=== PATIENT | female | born 1945 | race Caucasian/White ===

== ENCOUNTER 2022-02-04 16:35 | Emergency (ER) | payer MEDICARE, BC, SELFPAY ==
--- NOTE | ~2022-02-04 | CT_ITS ---
EXAMINATION: CT BRAIN W/O DATE: 02/04/2022 18:25 INDICATION: Fall. Head injury. Small laceration to the scalp. TECHNIQUE: Computed tomography (CT) of the head was performed without intravenous contrast. The dose- length product was 605.33 mGy-cm. COMPARISON: No prior studies for comparison. FINDINGS: Normal brain parenchymal volume for age. Normal dewey-white differentiation. No acute intrac ranial hemorrhage, infarction, mass or mass effect. No ventriculomegaly or midline shift. Midline sagittal images demonstrate a normal corpus callosum, c raniovertebral junction and sella turcica. Basilar cisterns are patent. Paranasal sinuses and mastoids are pneumatized. No depressed skull fractures. There is subcutaneous g as in the scalp, consistent with laceration near the parietal vertex. IMPRESSION: 1. No acute intracranial abnormality. Reviewed, dictated and finalized at location A.
--- NOTE | ~2022-02-04 | CT_ITS ---
EXAMINATION: CT cervical spine wo con DATE: 02/04/2022 18:25 INDICATION: Neck pain after fall TECHNIQUE: Computed tomography (CT) of the cervical spine was performed without intravenous contrast. The dose-length product was 171 mGy-cm. Automated exposure control and iterative reconstruction tech [place] were employed. COMPARISON: None FINDINGS: There is degenerative disc disease at C3-4, C4-5 and C5-6. There is degenerative retrolisth esis at C3-4. There is mild multilevel facet arthropathy. Odontoid process is normal. Lateral masses normally aligned. No significant paraspinal soft tissue abnormality. Craniovertebral junction within normal limits. IMPRESSION: 1. No acute abnormality of the cervical spine. 2: Mild-moderate cervical spondylosis. Reviewed, dictated and finalized at location A.
[2022-02-04 16:38] VITALS: BP 140/61; PULSE 81; RESP 18; TEMP 36.2; O2SAT 99
--- NOTE | 2022-02-04 17:34 | ED.FALL ---
HPI - Fall General Chief Complaint: Fall Stated Complaint: fall, head injury Time Seen by Provider: 02/04/22 17:34 Source: patient Mode of arrival: ambulatory Limitations: no limitations History of Present Illness HPI Narrative: Patient is a 76 y/o female who presents to the ED with c/o head injury that occurred around 4 PM. Patient reports she was walking out of her apartment today to take out the trash when she slipped on her front steps, falling backwards hitting her posterior head against the concrete steps. She sustained abrasions to her posterior scalp. Denied any LOC. Denied any prodromal symptoms. No significant headache, vision changes. No other injuries or areas of pain. She has been ambulatory since the fall. No blood thinners. Review of Systems Review of Systems: CONSTITUTIONAL: Denies fever, chills, or sweats. EYES: Denies visual changes. CARDIOVASCULAR: Denies chest pain. RESPIRATORY: Denies dyspnea. GASTROINTESTINAL: Denies abdominal pain, nausea, vomiting. SKIN: Reports abrasions to posterior scalp. MUSCULOSKELETAL: Denies back pain, joint pain, or myalgia. NEUROLOGIC: Reports HI. Denies headache, LOC, numbness, or weakness. All systems reviewed & are unremarkable except as noted in HPI and below PMFSH Past Medical History Medical History (Updated 02/04/22 @ 19:10 by Teagan Almonte PA-C) Anxiety Depression GERD (gastroesophageal reflux disease) HLD (hyperlipidemia) Surgical History Surgical History (Updated 02/04/22 @ 17:56 by Teagan Almonte PA-C) History of thumb surgery Social History Social History (Updated 02/04/22 @ 17:56 by Teagan Almonte PA-C) Smoking status: Never smoker Exam Narrative: GENERAL: Well appearing, well-nourished, non-toxic, in no acute distress. HEAD: Normocephalic. Small area of tender abraded skin to posterior scalp, two pinpoint areas of bleeding with manipulation of scalp. No deeper wounds or lacerations. No pulsatile bleeding. EYES: PERRL/EOMI, conjunctivae clear bilaterally. NECK: Supple. No adenopathy, no masses. No cervical midline spinal tenderness. RESPIRATORY: Airway patent, respirations nonlabored. Clear to auscultation bilaterally, no rales, rhonchi, wheezing. CARDIOVASCULAR: Regular rate and rhythm without murmurs, rubs, or gallops. Peripheral pulses 2+ and equal bilaterally. MUSCULOSKELETAL: Moves all extremities. Strength/ROM intact without gross deformities. Full ROM of R elbow. No midline thoracic or lumbar spinal tenderness. SKIN: Warm, dry, normal color. No rashes. Small abrasion to right elbow, nontender. NEURO: A&O X3. Speech clear. Cranial nerves II-XII grossly intact. Steady gait. No ataxic movements. PSYCHIATRIC: Appropriate mood and affect. Normal interaction. Course Vital Signs Vital signs: Vital Signs Temperature 97.1 F L 02/04/22 16:38 Pulse Rate 81 02/04/22 16:38 Respiratory Rate 18 02/04/22 16:38 Blood Pressure 140/61 02/04/22 16:38 Pulse Oximetry 99 02/04/22 16:38 Temperature 97.1 F L 02/04/22 16:38 Pulse Rate 81 02/04/22 16:38 Respiratory Rate 18 02/04/22 16:38 Blood Pressure 140/61 02/04/22 16:38 Pulse Oximetry 99 02/04/22 16:38 Procedures Laceration Laceration 1: Date: 02/04/22 Time: 19:00 Site: scalp Size (cm): 0.01 Description: clean Depth: simple, single layer Local Anesthetic: none Pre-repair: wound explored and irrigated ====== Skin Level ====== Skin layer closed with: tayla (#2) ====== Subcutaneous Layer ====== ====== Muscle Layer ====== ====== Tendon Layer ====== MDM - Fall MDM Narrative Medical decision making narrative: Patient presented to the ED status post ground-level mechanical fall, head injury, no LOC. Vital signs stable upon arrival. Small abrasions to posterior scalp. Irrigated and cleaned thoroughly. Initially did not feel patient required repair, but continued to have some bleed
== END 2022-02-04 19:43 | disposition home or self-care (01) ==
PROVIDERS: Emergency Provider Emergency Medicine
DX: S01.01XA Laceration without foreign body of scalp, initial encounter (principal); W10.9XXA Fall (on) (from) unspecified stairs and steps, initial encounter; F41.9 Anxiety disorder, unspecified; F32.9 Major depressive disorder, single episode, unspecified; K21.9 Gastro-esophageal reflux disease without esophagitis; E78.5 Hyperlipidemia, unspecified
CPT/HCPCS: 12001; 70450; 72125; 99284

== ENCOUNTER → 2022-03-12 09:20 | Outpatient (CLI) | payer MEDICARE, SELFPAY ==
--- NOTE | ~2022-03-12 | XR_ITS ---
EXAMINATION: XR chest 2V DATE: 03/12/2022 09:44 INDICATION: Productive cough TECHNIQUE: PA and lateral views of the chest are obtained. COMPARISON: None available FINDINGS: There are nodular opacities of the lungs in the midlung zones and right lung base. No pleur al effusion or pneumothorax. There is a moderate-sized hiatal hernia. The heart size is normal. There is severe thoracic spondylosis. Changes of right total shoulder arthroplasty are noted. IMPRESSION: 1. Bilateral nodular opacities of the lungs which could reflect pneumonia however further evaluation with CT of the chest is recommended. Reviewed, dictated and finalized at location B. IMPRESSION: 1. Bilateral nodular opacities of the lungs which could reflect pneumonia howev er further evaluation with CT of the chest is recommended.
== END ==
PROVIDERS: PCP Emergency Medicine; Visit Provider Emergency Medicine
DX: M47.814 Spondylosis without myelopathy or radiculopathy, thoracic region (principal); R05.9 Cough, unspecified; J40 Bronchitis, not specified as acute or chronic; K44.9 Diaphragmatic hernia without obstruction or gangrene
CPT/HCPCS: 71046

== ENCOUNTER → 2022-03-13 05:46 | Outpatient (CLI) | payer MEDICARE, BC, SELFPAY ==
[2022-03-13 11:12] LABS: SARS-CoV-2 RNA PCR Negative
== END ==
PROVIDERS: PCP Emergency Medicine; Visit Provider Emergency Medicine
DX: R09.89 Other specified symptoms and signs involving the circulatory and respiratory systems (principal); Z20.822 Contact with and (suspected) exposure to COVID-19
CPT/HCPCS: C9803; U0003; U0005

== ENCOUNTER 2022-03-13 10:42 | Emergency (ER) | payer MEDICARE, BC, SELFPAY ==
--- NOTE | ~2022-03-13 | CT_ITS ---
EXAMINATION:CT diagnostic chest wo con DATE: 03/13/2022 12:11 INDICATION: Cough. Abnormal chest radiographs. TECHNIQUE: Computed tomography (CT) of the chest was performed without intravenous contrast. Automate d exposure control and iterative reconstruction technique were employed. The dose-length product (DLP ) was 129.75 mGy-cm. COMPARISON: Chest 2 views 03/12/2022 FINDINGS: There is mild scarring at the lung apices. There are airspace and groundglass opacities wit h air bronchograms in posterior segment right upper lobe. There are patchy airspace opacities with ai r bronchograms in right lower lobe. There are airspace opacities with volume loss and mild bronchiect asis in lingula. There are airspace opacities and centrilobular nodules in anterior segment left uppe r lobe. No pleural effusion. The heart size is normal. There are coronary artery calcifications. No p ericardial effusion. There is a moderate-sized sliding hiatal hernia. There is a total right shoulder arthroplasty. There is an old healed left rib fracture. There is thoracic kyphosis and severe spondy losis. IMPRESSION: 1. Multifocal pneumonia. 2. Moderate-sized sliding hiatal hernia. Reviewed, dictated and finalized at location A.
[2022-03-13 10:46] VITALS: BP 144/61; PULSE 90; RESP 20; TEMP 36.7; O2SAT 98
[2022-03-13 11:23] LABS: Basophils Absolute Auto 0.1 K/mm3 (0.0-0.1); Basophils Percent Auto 0.6 % (0.2-1.2); Eosinophils Absolute Auto 0.2 K/mm3 (0-0.3); Eosinophils Percent Auto 2.7 % (0-4.4); Hematocrit 37.9 % (37.0-47.0); Hemoglobin 12.7 g/dL (12.0-15.0); Immature Granulocyte Absolute 0.07 K/mm3 (0.00-0.031); Immature Granulocyte Percent A 0.8 % (0-0.5); Lymphocytes Absolute Auto 1.31 K/mm3 (0.9-3.2); Lymphocytes Percent Auto 14.7 % (18.3-44.2); Mean Corpuscular HGB Conc 33.5 g/dl (32-36); Mean Corpuscular Hemoglobin 31.3 pg (26-34); Mean Corpuscular Volume 93.3 fl (80-100); Mean Platelet Volume 8.7 fl (7.4-10.4); Monocytes Absolute Auto 0.7 K/mm3 (0.1-0.6); Monocytes Percent Auto 8.1 % (2.6-8.5); Neutrophils Absolute Auto 6.5 K/mm3 (1.3-6.7); Neutrophils Percent Auto 73.1 % (45.5-73.1); Platelet Count Result 318 k/mm3 (150-375); Red Blood Count 4.06 M/mm3 (4.2-5.4); Red Cell Distribution Width 12.7 % (11.5-14.5); White Blood Count 8.9 K/mm3 (4.5-10.0)
--- NOTE | 2022-03-13 11:26 | ED.RECABL ---
HPI - Recheck/Abnormal Lab/Rx General Chief Complaint: Recheck/Abnormal Lab/Rx Stated Complaint: abnormal cxr Time Seen by Provider: 03/13/22 11:05 Source: patient, RN notes reviewed and old records reviewed Mode of arrival: ambulatory Limitations: no limitations History of Present Illness HPI narrative: This is a 76 year old female who presents for evaluation of an abnormal chest xray . Patient has been dealing with a cough for 3 weeks. She reports cough has been productive with yellow to green sputum so her PCP ordered xray yesterday and covid test today. She denies sob, fever, nausea, vomiting or chest pain. She also denies leg swelling. She started on Cefdinir yesterday for treatment of bronchitis per patient. Her PCP called her today and told her to come to ER. She had chest xray yesterday in which radiologist recommended CT . Related Data Allergies Allergy/AdvReac Type Severity Reaction Status Date / Time codeine AdvReac Nausea Verified 03/13/22 11:28 Review of Systems Review of Systems: All systems reviewed & are unremarkable except as noted in HPI and below Constitutional: Constitutional: Denies chills, Denies fatigue and Denies fever(s) Cardiovascular: Cardiovascular: Denies chest pain Respiratory: Respiratory: Reports chest congestion, Reports cough, Denies dyspnea and Denies wheezing Gastrointestinal: Gastrointestinal: Denies abdominal pain, Denies nausea and Denies vomiting PMFSH Past Medical History Medical History Anxiety Depression GERD (gastroesophageal reflux disease) HLD (hyperlipidemia) Surgical History Surgical History History of thumb surgery Social History Social History Smoking status: Never smoker Exam Const: General: no acute distress and alert Nutritional Appearance: well nourished Orientation/consciousness: patient oriented x3 HENMT: Throat: posterior oropharynx normal Eyes: EOM: EOMs intact bilaterally Chest: Chest palpation & inspection: normal inspection of the chest Resp: Effort & Inspection: normal respiratory effort Auscultation: wheezes expiratory wheezes and left lower Cardio: Rate: regular rate Rhythm: regular rhythm Heart sounds: no murmurs GI: GI Palp: Yes Soft to palpation, No Tenderness to palpation present (GI) and No Guarding due to palpation present (GI) Auscultation: normal bowel sounds Skin: General skin exam: normal color Rashes: no rashes Wounds: no wounds Neuro: General: patient oriented x3, moves all extremities and CN's II-XI intact bilaterally Extrem: General: normal to inspection and no pedal edema Psych: Mental Status: mental status grossly normal Course Reevaluation(s) Reevaluation #1: PAtient looks well and she is no distress. LAbs are unremarkable. CT does show pneumonia but she just started antibiotics yesterday. She will continue her antibiotics and be discharged. I informed Dr. Cheng of the plan and he will follow up with patient. Patient states she feels great. Date: 03/13/22 Time: 13:17 Vital Signs Vital signs: Vital Signs Temperature 98.0 F 03/13/22 10:46 Pulse Rate 90 03/13/22 10:46 Respiratory Rate 20 03/13/22 10:46 Blood Pressure 144/61 H 03/13/22 10:46 Pulse Oximetry 98 03/13/22 10:46 Oxygen Delivery Room Air 03/13/22 10:46 Temperature 98.0 F 03/13/22 10:46 Pulse Rate 78 03/13/22 13:38 Respiratory Rate 18 03/13/22 13:38 Blood Pressure 120/66 03/13/22 13:38 Pulse Oximetry 99 03/13/22 13:38 Oxygen Delivery Room Air 03/13/22 10:46 MDM - Recheck/Abnormal Lab/Rx Medical Records Attestation: I reviewed the patient's medical records. Lab Data Attestation: I reviewed the patient's lab results. Result diagrams: 03/13/22 11:11 03/13/22 11:11 Labs: Lab Results
[2022-03-13 11:32] LABS: Alanine Aminotransferase 15 U/L (6-35); Albumin Level 3.9 g/dL (3.5-5.1); Alkaline Phosphatase 150 U/L (38-126); Anion Gap 11 mmol/L (8-16); Aspartate Amino Transferase 19 U/L (14-36); Bilirubin,Total 0.2 mg/dL (0.2-1.3); Blood Urea Nitrogen 21 mg/dL (7-17); Calcium 9.2 mg/dL (8.4-10.2); Carbon Dioxide 32 mmol/L (22-30); Chloride 99 mmol/L (98-107); Estimated CRCL calculation 60 ml/min; Estimated Glomerular Filt Rate 54; Glucose 123 mg/dL (65-110); Potassium 3.7 mmol/L (3.4-5.0); Sodium 142 mmol/L (137-145)
[2022-03-13] MEDS: ALBUTEROL SULFATE (*SP) AEROSOL 1 PUFF 4 PUFF INHALATION (11:43)
[2022-03-13 13:15] VITALS: BP 124/71; PULSE 57; RESP 20; O2SAT 99
[2022-03-13 13:38] VITALS: BP 120/66; PULSE 78; RESP 18; O2SAT 99
== END 2022-03-13 13:40 | disposition home or self-care (01) ==
PROVIDERS: Emergency Provider General Practice; PCP Emergency Medicine
DX: J18.9 Pneumonia, unspecified organism (principal); E78.5 Hyperlipidemia, unspecified; K21.9 Gastro-esophageal reflux disease without esophagitis; F41.9 Anxiety disorder, unspecified; F32.A Depression, unspecified
CPT/HCPCS: 36415; 71250; 80053; 85025; 99284; A9270; C9803; U0003; U0005

== ENCOUNTER → 2022-03-22 10:06 | Outpatient (CLI) | payer MEDICARE, BC, SELFPAY ==
--- NOTE | ~2022-03-22 | XR_ITS ---
XR chest 2V 03/22/2022 10:34 Indication: Multifocal pneumonia. Procedure: 2 view chest Comparison: 03/12/2022 Findings: Improving patchy bilateral airspace disease of the mid lungs, consistent with resolving pne umonia. Moderate size hiatal hernia. No pleural effusion or pneumothorax. No acute osseous abnormalit y. There is a right shoulder arthroplasty. Heart size normal. There is nodular density in the left mi d thorax corresponding to callus formation from rib fracture. Impression: 1: Improving patchy bilateral pneumonia. Reviewed, dictated and finalized at location B. Impression: 1: Improving patchy bilateral pneumonia.
--- NOTE | ~2022-03-22 | XR_ITS ---
EXAMINATION: XR thoracic spine 3V DATE: 03/22/2022 10:33 INDICATION: Thoracic back pain TECHNIQUE: AP, lateral and lateral swimmer's views of the thoracic spine were obtained. COMPARISON: 03/13/2022 FINDINGS: Bone alignment is normal. There is no fracture. There is severe loss of intervertebral disc space height at multiple levels in the thoracic spine. Exaggerated thoracic kyphosis is noted. The v ertebral body heights are normal. Small degenerative osteophytes project from the anterior endplates of multiple vertebral bodies. Moderate cervical spondylosis is also noted. IMPRESSION: 1. Severe thoracic spondylosis without acute findings. Reviewed, dictated and finalized at location A.
--- NOTE | ~2022-03-22 | XR_ITS ---
EXAMINATION: XR lumbar spine 2-3V DATE: 03/22/2022 10:34 INDICATION: Low back pain TECHNIQUE: Anteroposterior and lateral views of the lumbar spine, and cone-down lateral view of the l umbosacral junction were obtained. COMPARISON: None. FINDINGS: There are 2 mm of anterolisthesis of L3 on L4. There is severe loss of intervertebral disc space height at L4-5 and L5-S1. The vertebral body heights are normal. There is severe facet osteoart hritis of the lower lumbar spine. There is no fracture. Changes of right hip arthroplasty are noted. IMPRESSION: 1. Severe lower lumbar spondylosis without acute findings. Reviewed, dictated and finalized at location A.
== END ==
PROVIDERS: PCP Emergency Medicine; Visit Provider Emergency Medicine
DX: J18.9 Pneumonia, unspecified organism (principal); M47.813 Spondylosis without myelopathy or radiculopathy, cervicothoracic region; M47.815 Spondylosis without myelopathy or radiculopathy, thoracolumbar region; K44.9 Diaphragmatic hernia without obstruction or gangrene
CPT/HCPCS: 71046; 72072; 72100

== ENCOUNTER 2022-04-30 13:55 | Outpatient (CLI) | payer MEDICARE, BC, SELFPAY ==
--- NOTE | ~2022-04-30 | MM_ITS ---
EXAMINATION: MM screening jm BI w hellen HISTORY: Screening TECHNIQUE: Craniocaudal and mediolateral oblique 3-D tomosynthesis images were obtained and synthetic 2-D images were generated. CAD analysis was submitted and interpreted. COMPARISON: No prior mammogram is available for comparison at this institution. BREAST PARENCHYMAL COMPOSITION: There are scattered areas of fibroglandular density. FINDINGS: There is no evidence of suspicious mass, calcification, or architectural distortion to sugg est malignancy in either breast. There has been no suspicious interval change. IMPRESSION: 1. No mammographic evidence of malignancy. 2. Recommend routine screening mammography in one year. BI-RADS Category 1: Negative Reviewed, dictated and finalized at location A.
== END 2022-04-30 13:56 | disposition home or self-care (01) ==
LOC: ANHIMG 13:58
PROVIDERS: PCP Emergency Medicine; Visit Provider Emergency Medicine
DX: Z12.31 Encounter for screening mammogram for malignant neoplasm of breast (principal)
CPT/HCPCS: 77063; 77067

== ENCOUNTER 2022-07-15 17:24 | Emergency (ER) | payer MEDICARE, BC, SELFPAY ==
--- NOTE | ~2022-07-15 | XR_ITS ---
EXAMINATION: XR chest 2V DATE: 07/15/2022 18:25 INDICATION: Shortness of breath. TECHNIQUE: Frontal and lateral views of the chest were obtained. COMPARISON: Chest 2 views 03/22/2022, chest CT 03/13/2022 FINDINGS: There is no pneumonia, pleural effusion, or pneumothorax. The heart size is normal. There i s a moderate-sized hiatal hernia. There are prominent paracardial fat pads. There is a total right sh oulder arthroplasty. There is old healed left rib fracture. IMPRESSION: 1. Moderate-sized hiatal hernia. Reviewed, dictated and finalized at location A. MAKER
--- NOTE | 2022-07-15 17:30 | ECG_ITS ---
Measurements Intervals [place] Rate: 88 P: 70 KS: 137 QRS: 44 QRSD: 88 T: 51 QT: 358 QTc: 434 Interpretive Statements SINUS RHYTHM MINIMAL Q WAVES- ANTEROLAT/INF LEADS BASELINE ARTIFACT- I, II, III, AVR, AVL, AVF, V1-V6 BORDERLINE ECG NO PREVIOUS ECG AVAILABLE FOR COMPARISON Electronically Signed On 07-15-2022 20:20:58 WIPING CLOTH CUTTER by Ronak Ferreira D.O.
[2022-07-15 17:57] VITALS: BP 115/87; PULSE 86; RESP 14; TEMP 36.5; O2SAT 96
[2022-07-15 18:16] LABS: Basophils Percent Auto 0.3 % (0.2-1.2); Eosinophils Absolute Auto 0.2 K/mm3 (0-0.3); Eosinophils Percent Auto 2.7 % (0-4.4); Hemoglobin 13.3 g/dL (12.0-15.0); Immature Granulocyte Absolute 0.01 K/mm3 (0.00-0.031); Immature Granulocyte Percent A 0.2 % (0-0.5); Lymphocytes Absolute Auto 1.31 K/mm3 (0.9-3.2); Lymphocytes Percent Auto 20.8 % (18.3-44.2); Mean Corpuscular HGB Conc 34.1 g/dl (32-36); Mean Corpuscular Hemoglobin 31.6 pg (26-34); Mean Corpuscular Volume 92.6 fl (80-100); Mean Platelet Volume 9.2 fl (7.4-10.4); Monocytes Absolute Auto 0.6 K/mm3 (0.1-0.6); Monocytes Percent Auto 8.7 % (2.6-8.5); Neutrophils Absolute Auto 4.3 K/mm3 (1.3-6.7); Neutrophils Percent Auto 67.3 % (45.5-73.1); Platelet Count Result 247 k/mm3 (150-375); Red Blood Count 4.21 M/mm3 (4.2-5.4); Red Cell Distribution Width 13.3 % (11.5-14.5); White Blood Count 6.3 K/mm3 (4.5-10.0)
[2022-07-15 18:28] LABS: Alanine Aminotransferase 23 U/L (6-35); Albumin Level 4.1 g/dL (3.5-5.1); Alkaline Phosphatase 121 U/L (38-126); Anion Gap 9 mmol/L (8-16); Aspartate Amino Transferase 27 U/L (14-36); Bilirubin,Total 0.3 mg/dL (0.2-1.3); Blood Urea Nitrogen 21 mg/dL (7-17); Calcium 8.9 mg/dL (8.4-10.2); Carbon Dioxide 28 mmol/L (22-30); Chloride 104 mmol/L (98-107); Estimated CRCL calculation 44 ml/min; Estimated Glomerular Filt Rate > 60; Glucose 92 mg/dL (65-110); Potassium 4.3 mmol/L (3.4-5.0); Sodium 141 mmol/L (137-145)
[2022-07-15 22:17] VITALS: BP 130/66; PULSE 79; RESP 17; O2SAT 96; O2SAT 98
[2022-07-15 22:45] LABS: NT Pro B Type Natriuretic Pept 500 pg/mL (19.9-100); Troponin I < 0.012 ng/mL (0.000-0.034)
--- NOTE | 2022-07-16 00:37 | ED.GENADULT ---
HPI - General Adult General Chief complaint: Shortness of Breath/Dyspnea Stated complaint: SOB Time Seen by Provider: 07/15/22 22:18 History of Present Illness HPI narrative: Patient is 76-year-old female who presents the emergency department with chief complaint of shortness of breath. The patient states that for several months she has been having increased shortness of breath and is required 3 pillows to sleep with underneath her head at night. Patient states that she has noticed a little bit of edema in her lower extremities and talk to her primary care provider today who recommended she come to the emergency department to be evaluated to make sure that she was not having a heart attack the patient denies chest pain reports that her shortness of breath is worse with exertion. The patient reports that her primary was planning on having her follow-up with cardiology as an outpatient if she was not having a heart attack today Related Data Home Medications Medication Instructions Recorded Confirmed omeprazole 20 mg capsule,delayed mg 07/15/22 release simvastatin 40 mg tablet mg 07/15/22 venlafaxine 150 mg mg PO 07/15/22 capsule,extended release 24 hr Allergies Allergy/AdvReac Type Severity Reaction Status Date / Time codeine AdvReac Nausea Verified 07/15/22 22:17 Review of Systems Review of Systems: A 10 system review of systems was completed on the patient and is negative except for what is stated in the HPI. Nursing and ancillary documentation was reviewed. PMFSH Past Medical History Medical History Anxiety Depression GERD (gastroesophageal reflux disease) HLD (hyperlipidemia) Surgical History Surgical History History of thumb surgery Social History Social History Smoking status: Never smoker Exam Narrative: GENERAL: Well-appearing, well-nourished, and in no acute distress. HEAD: Normocephalic, atraumatic. EYES: PERRLA and EOMI. ENT: Nares clear, no rhinorrhea or epistaxis. Mucous membranes moist. NECK: Supple. CHEST: Clear to auscultation. No respiratory distress. HEART: Regular rate and rhythm. No murmur heard. Normal peripheral pulses. ABDOMEN: Soft, nontender, nondistended, normal active bowel sounds. EXTREMITIES: Normal range of motion. Trace edema. SKIN: Warm, dry, no rash. NEURO: No focal deficits. Alert and oriented x3. PSYCH: Normal mood and affect. Course Vital Signs Vital signs: Vital Signs Temperature 36.5 C 07/15/22 17:57 Pulse Rate 86 07/15/22 17:57 Respiratory Rate 14 07/15/22 17:57 Blood Pressure 115/87 07/15/22 17:57 Pulse Oximetry 96 07/15/22 17:57 Oxygen Delivery Room Air 07/15/22 17:57 Temperature 36.5 C 07/15/22 17:57 Pulse Rate 79 07/15/22 22:17 Respiratory Rate 17 07/15/22 22:17 Blood Pressure 130/66 07/15/22 22:17 Pulse Oximetry 96 07/15/22 22:17 Oxygen Delivery Room Air 07/15/22 22:17 Medical Decision Making MDM Narrative Medical decision making narrative: EKG is sinus rhythm rate of [address] elevation or ST depression Patient's initial troponin was negative Chest x-ray interpreted by the radiologist and reviewed by me showed evidence of a hiatal hernia no evidence of fluid overload. Patient's BNP was 500 which is within the age-adjusted range troponin was negative at less than 0.012 since patient symptoms have been ongoing for such an extended period of time patient will be negative from a rule out acute cardiac event. Vital Signs Vital Signs: Vital Signs Temperature 36.5 C 07/15/22 17:57 Pulse Rate 86 07/15/22 17:57 Respiratory Rate 14 07/15/22 17:57 Blood Pressure 115/87 07/15/22 17:57 Pulse Oximetry 96 07/15/22 17:57 Oxygen Delivery Room Air 07/15/22 17:57 Temperature 36.5 C 06/27
[2022-07-16 01:14] VITALS: BP 117/57; PULSE 77; RESP 18; O2SAT 98
== END 2022-07-16 01:15 | disposition home or self-care (01) ==
PROVIDERS: Emergency Medicine; Emergency Provider Emergency Medicine; PCP Emergency Medicine
DX: R06.00 Dyspnea, unspecified (principal); E78.5 Hyperlipidemia, unspecified; K21.9 Gastro-esophageal reflux disease without esophagitis; F41.9 Anxiety disorder, unspecified; F32.A Depression, unspecified; R94.31 Abnormal electrocardiogram [ECG] [EKG]
CPT/HCPCS: 36415; 71046; 80053; 83880; 84484; 85025; 93005; 99284

== ENCOUNTER 2024-05-21 18:33 | Emergency (ER) | payer MEDICARE, BC, SELFPAY ==
[2024-05-21 19:01] VITALS: BP 148/107; PULSE 61; RESP 16; TEMP 36.6; O2SAT 98
[2024-05-22 01:56] LABS: Basophils Absolute Auto 0.1 K/mm3 (0.0-0.1); Basophils Percent Auto 0.6 % (0.2-1.2); Eosinophils Absolute Auto 0.3 K/mm3 (0-0.3); Eosinophils Percent Auto 4.3 % (0-4.4); Hematocrit 37.1 % (37.0-47.0); Immature Granulocyte Absolute 0.01 K/mm3 (0.00-0.031); Immature Granulocyte Percent A 0.1 % (0-0.5); Lymphocytes Absolute Auto 1.42 K/mm3 (0.9-3.2); Lymphocytes Percent Auto 18.3 % (18.3-44.2); Mean Corpuscular Hemoglobin 31.9 pg (26-34); Mean Corpuscular Volume 90.9 fl (80-100); Mean Platelet Volume 9.6 fl (7.4-10.4); Monocytes Absolute Auto 0.9 K/mm3 (0.1-0.6); Neutrophils Percent Auto 64.7 % (45.5-73.1); Platelet Count Result 281 k/mm3 (150-375); Red Blood Count 4.08 M/mm3 (4.2-5.4); Red Cell Distribution Width 13.3 % (11.5-14.5); White Blood Count 7.8 K/mm3 (4.5-10.0)
[2024-05-22 02:11] LABS: Alanine Aminotransferase 26 U/L (6-35); Alkaline Phosphatase 103 U/L (38-126); Anion Gap 6 mmol/L (4-12); Aspartate Amino Transferase 33 U/L (14-36); Bilirubin,Total 0.6 mg/dL (0.2-1.3); Blood Urea Nitrogen 17 mg/dL (7-17); Calcium 9.2 mg/dL (8.4-10.2); Carbon Dioxide 28 mmol/L (22-30); Chloride 105 mmol/L (98-107); Estimated CRCL calculation 42 ml/min; Estimated Glomerular Filt Rate 60; Glucose 111 mg/dL (65-110); Potassium 3.7 mmol/L (3.4-5.0); Sodium 139 mmol/L (137-145)
[2024-05-22 02:20] LABS: NT Pro B Type Natriuretic Pept 551 pg/mL (19.9-100)
--- NOTE | 2024-05-22 02:34 | ED_ITS ---
HPI - Extremity Problem General Chief complaint: Extremity Problem,Nontraumatic Stated complaint: BLE swelling Time Seen by Provider: 05/22/24 01:32 History of Present Illness HPI Narrative: Patient is a 78-year-old female who presents to the emergency department this evening complaining of bilateral lower extremity swelling and pain. Patient admits that she does have a history of peripheral vascular disease and was following up with a travel information center supervisor in a different state but now that she has moved to this area she has not followed up with anyone. Patient denies any history of congestive heart failure and does not take any water for her lower extremity edema. Patient states that she noticed some pain as well which prompted her to come to the emergency department for further evaluation. Denies any additional symptoms including any chest pain or shortness of breath, any nausea vomiting or any abdominal pain. No additional symptoms or concerns at this time. Related Data Home Medications Medication Instructions Recorded Confirmed omeprazole 20 mg capsule,delayed mg 07/15/22 release simvastatin 40 mg tablet mg 07/15/22 venlafaxine 150 mg mg PO 07/15/22 capsule,extended release 24 hr Allergies Allergy/AdvReac Type Severity Reaction Status Date / Time codeine AdvReac Nausea Verified 07/15/22 22:17 Review of Systems Review of Systems: All systems are reviewed and are negative unless stated otherwise in the HPI. [facility] Past Medical History Medical History Anxiety Depression GERD (gastroesophageal reflux disease) HLD (hyperlipidemia) Surgical History Surgical History History of thumb surgery Social History Social History Smoking status: Never smoker Exam Narrative: General: Alert, awake, afebrile, in no acute distress. HEENT: PERRL, no rhinorrhea, no post nasal drip, oropharynx clear. Neck: Trachea midline, no JVD, no lymphadenopathy. Cardiovascular: Regular rate and rhythm, no murmurs, rubs or gallops, 2+ bilateral lower extremity pitting edema. Respiratory: Clear to auscultation bilaterally, no tachypnea, no wheezing, no rhonchi, no rubs, no respiratory distress. Abdomen: Soft, nontender, nondistended, no rebound, no guarding, no peritoneal signs. Musculoskeletal: No joint swelling or deformity, normal muscle tone, erythema noted along the patient's lateral left foot around her left small concerning for cellulitis. Skin: No rashes or petechia, no signs of infection. Psychiatric: Alert and oriented, normal behavior and judgment for situation. Neurological: Alert and oriented to person, place, and time. Follows all commands. No focal deficits, speech is clear and fluent. Course Vital Signs Vital signs: Vital Signs Temperature 97.8 F 05/21/24 19:01 Pulse Rate 61 05/21/24 19:01 Respiratory Rate 16 05/21/24 19:01 Blood Pressure 148/107 H 05/21/24 19:01 Pulse Oximetry 98 05/21/24 19:01 Temperature 97.8 F 05/21/24 19:01 Pulse Rate 61 05/21/24 19:01 Respiratory Rate 16 05/21/24 19:01 Blood Pressure 148/107 H 05/21/24 19:01 Pulse Oximetry 98 05/21/24 19:01 MDM - Extremity (Nontraumatic) MDM Narrative Medical decision making narrative: The patient was evaluated by myself in the emergency department. History is obtained from patient who is an independent historian and physical exam was performed. External medical records were reviewed at this time. IV was established and pertinent tests were ordered. Laboratory results obtained revealing no acute process. BNP mildly elevated at 551. Patient was informed of these findings at bedside. Given the erythema noted along the patient's left small toe I did inform the patient that I am going to place her on an oral antibiotic to cover her for cellulitis. I also informed the patient that her peripheral vascular disease could be contributing to her symptoms and she will be provided with a travel information center supervisor to follow up with and establish care. Patient was informed that her lower extremity edema could be secondary to venous stasis but also could be a sign of heart failure which is something she can also follow-up with cardiology as an outpatient for possible echocardiogram to assess her ejection fraction. I did recommend obtaining bilateral lower extremity venous duplex to rule out DVT although unlikely and informed the patient that I will be scheduling her for an outpatient bilateral lower extremity venous duplex ultrasound to be performed this morning at 7:00 a.m. patient is agreeable with this plan. Differential diagnosis considerations include congestive heart failure, venous stasis, DVT, cellulitis, peripheral vascular disease. Comorbidities impacting this visit include history of peripheral vascular disease and medical noncompliance, loss of follow-up. I have evaluated and discussed social determinants of health with the patient that could potentially impact subsequent diagnosis and treatment plans. On repeat assessment of the patient, reevaluation revealed that the patient is doing well and is in no acute distress. Patient symptoms have remained stable since she arrived to our emergency department. Repeat vital signs were all r eviewed and noted to be stable. Differential diagnosis and treatment plan were discussed with the patient at bedside. Patient agrees with discussion and after shared medical decision making agrees with discharge. All questions were answered to the patient's satisfaction. Patient will follow up with Cardiology in 3-5 days. She was scheduled for outpatient venous duplex ultrasound and instructed to present to our outpatient imaging center this morning at 7:00 a.m. and patient is agreeable. Patient was provided with strict return precautions and instructed to return to the emergency department if any new or worsening symptoms develop. The patient was discharged in stable condition. Lab Data 05/22/24 01:50 05/22/24 01:50 Labs: Lab Results 05/22/24 Range/Units 01:50 WBC 7.8 (4.5-10.0) K/mm3 RBC 4.08 L (4.2-5.4) M/mm3 Hgb 13.0 (12.0-15.0) g/dL Hct 37.1 (37.0-47.0) % MCV 90.9 (80-100) fl MCH 31.9 (26-34) pg MCHC 35.0 (32-36) g/dl RDW 13.3 (11.5-14.5) % Plt Count 281 (150-375) k/mm3 MPV 9.6 (7.4-10.4) fl Immature Gran % (Auto) 0.1 (0-0.5) % Neut % (Auto) 64.7 (45.5-73.1) % Lymph % (Auto) 18.3 (18.3-44.2) % [place] % (Auto) 12.0 H (2.6-8.5) % Eos % (Auto) 4.3 (0-4.4) % Baso % (Auto) 0.6 (0.2-1.2) % Lymph # (Auto) 1.42 (0.9-3.2) K/mm3 [place] # (Auto) 0.9 H (0.1-0.6) K/mm3 Eos # (Auto) 0.3 (0-0.3) K/mm3 Baso # (Auto) 0.1 (0.0-0.1) K/mm3 Abs Immat Gran (auto) 0.01 (0.00-0.031) K/mm3 Absolute Neuts (auto) 5.0 (1.3-6.7) K/mm3 Absolute Nucleated RBC 0.000 (0.0-0.012) K/mm3 Nucleated RBC % 0.0 (0.0-0.2) % Sodium 139 (137-145) mmol/L Potassium 3.7 (3.4-5.0) mmol/L Chloride 105 (98-107) mmol/L Carbon Dioxide 28 (22-30) mmol/L Anion Gap 6 (4-12) mmol/L BUN 17 (7-17) mg/dL Creatinine 0.90 (0.7-1.0) mg/dL Estim Creat Clear Calc 42 ml/min Estimated GFR 60 (59 - ) Glucose 111 H (65-110) mg/dL Calcium 9.2 (8.4-10.2) mg/dL Total Bilirubin 0.6 (0.2-1.3) mg/dL AST 33 (14-36) U/L ALT 26 (6-35) U/L Alkaline Phosphatase 103 (38-126) U/L NT-Pro-B Natriuret Pep 551 H (19.9-100) pg/mL Total Protein 7.0 (6.3-8.2) g/dL Albumin 4.0 (3.5-5.1) g/dL Discharge Plan Discharge Clinical Impression: Lower extremity edema, Peripheral vascular disease, Cellulitis Patient Disposition: Home, Self-Care Condition: Stable Instructions: Antibiotic Form, Leg Edema (ED) Additional Instructions: Please follow-up with the travel information center supervisor that was provided to you today within the next 3-5 days regarding your lower extremity pitting edema and peripheral vascular disease. You were scheduled for an outpatient ultrasound of your bilateral lower extremity to rule out a DVT this morning at 7:00 a.m. Please present to the outpatient imaging department by 7:00 a.m. Take the prescribed antibiotic as instructed. Prescriptions: New cephalexin 500 mg capsule 500 mg PO Q12H 7 Days Qty: 14 0RF No Action venlafaxine 150 mg capsule,extended release 24hr PO simvastatin 40 mg tablet omeprazole 20 mg capsule,delayed release(DR/EC) Other Ambulatory Orders: US venous doppler LE BI (Routine) Timeframe: 1 Day Location: Determined by Patient Ordered By: Calvin Virgen Follow-up/Referrals: Ronak Ferreira DO [Physician] - 3 Days PHYSICIAN,SPORTS TEAM MANAGER [Primary Care Provider] - Time of Disposition: 02:35
== END 2024-05-22 02:50 | disposition home or self-care (01) ==
PROVIDERS: Emergency Provider Emergency Medicine
DX: R60.0 Localized edema (principal); I73.9 Peripheral vascular disease, unspecified; L03.116 Cellulitis of left lower limb; K21.9 Gastro-esophageal reflux disease without esophagitis; E78.5 Hyperlipidemia, unspecified; F41.9 Anxiety disorder, unspecified; F32.A Depression, unspecified; Z79.899 Other long term (current) drug therapy
CPT/HCPCS: 36415; 80053; 83880; 85025; 93970; 99283

== ENCOUNTER 2024-05-22 07:15 | Outpatient (CLI) | payer MEDICARE, BC, SELFPAY ==
--- NOTE | ~2024-05-22 | US_ITS ---
BILATERAL LOWER EXTREMITY VENOUS ULTRASOUND Ordering provider: Calvin Virgen MD History: . R60.0 - Localized edema . Comparison: None. FINDINGS: RIGHT LOWER EXTREMITY VEINS: --COMMON FEMORAL: Patent and free of thrombus. Normal compressibility, phasic flow and augmentation. --PROXIMAL SUPERFICIAL FEMORAL: Patent and free of thrombus. Normal compressibility, phasic flow and augmentation. --DISTAL SUPERFICIAL FEMORAL: Patent and free of thrombus. Normal compressibility, phasic flow and au gmentation. --POPLITEAL: Patent and free of thrombus. Normal compressibility, phasic flow and augmentation. --POSTERIOR TIBIAL: Patent and free of thrombus. Normal compressibility, phasic flow and augmentation . LEFT LOWER EXTREMITY VEINS: --COMMON FEMORAL: Patent and free of thrombus. Normal compressibility, phasic flow and augmentation. --PROXIMAL SUPERFICIAL FEMORAL: Patent and free of thrombus. Normal compressibility, phasic flow and augmentation. --DISTAL SUPERFICIAL FEMORAL: Patent and free of thrombus. Normal compressibility, phasic flow and au gmentation. --POPLITEAL: Patent and free of thrombus. Normal compressibility, phasic flow and augmentation. --POSTERIOR TIBIAL: Patent and free of thrombus. Normal compressibility, phasic flow and augmentation . Edema is seen in the bilateral calf. Mccormack's cyst is seen in the right popliteal area. IMPRESSION: Negative bilateral lower extremity venous US. No deep vein thrombosis. Mccormack's cyst in the right popliteal fossa. Reviewed, dictated and finalized at location A. T SERVICES ASSISTANT
== END 2024-05-22 07:16 | disposition home or self-care (01) ==
PROVIDERS: PCP Internal Medicine Cardiovascular Disease; Visit Provider Emergency Medicine
DX: R60.0 Localized edema (principal); M71.21 Synovial cyst of popliteal space [Baker], right knee
CPT/HCPCS: 93970

== ENCOUNTER 2024-07-31 09:24 | Outpatient (CLI) | payer MEDICARE, BC, SELFPAY ==
--- NOTE | 2024-07-31 09:31 | ECHO_ITS ---
Patient Info Name: Letty Rothman Age: 78 years : 1945 Gender: Female Ht: 66 in Wt: 145 lbs BSA: 1.76 m2 HR: 85 bpm BP: 156 / 79 mmHg Technical Quality: Good Exam Date: 07/31/2024 9:40 AM Exam Location: Echo Lab Patient Status: Outpatient Admit Date: 07/31/2024 Staff Ordering Physician: Ronak Ferreira DO Cement Loader: Nakita Mercado RDCS Attending Provider: Ronak Ferreira DO Referring Physician: Jhon BACK; Exam Type: CA echo doppler color flow Study Info Indications R60.0 - Localized edema Complete two-dimensional, color flow and Doppler transthoracic echocardiogram is performed. Summary 1. Complete two-dimensional, color flow and Doppler transthoracic echocardiogram is performed. 2. Left ventricular chamber dimension is normal. 3. Left ventricular systolic function is normal, estimated at 65-70%. 4. The left ventricular diastolic function is grade I diastolic dysfunction. 5. E/e' 17 is elevated. 6. Left atrial chamber dimension is mildly enlarged. 7. There is mild aortic valve sclerosis. 8. There is trace aortic valve regurgitation. 9. The mitral valve has mildly calcified annulus. 10. There is trace mitral valve regurgitation. 11. There is mild tricuspid valve regurgitation. 12. Mild pulmonary hypertension, estimated pulmonary arterial systolic pressure is 46 mmHg. Left Ventricle E/e' 17 is elevated. Left ventricular chamber dimension is normal. Left ventricular systolic function is normal, estimated at 65-70%. The left ventricular diastolic function is grade I diastolic dysfunction. Right Ventricle Right ventricular systolic function is normal and with normal TAPSE 2.5 cm. Right ventricular chamber dimension is normal. Left Atria Left atrial chamber dimension is mildly enlarged. Right Atria Right atrial chamber dimension is normal. Aortic Valve The aortic valve is trileaflet. There is mild aortic valve sclerosis. There is no aortic valve stenosis. There is trace aortic valve regurgitation. Pulmonic Valve There is no pulmonic regurgitation. Mitral Valve The mitral valve has mildly calcified annulus. There is no mitral valve stenosis. There is trace mitral valve regurgitation. Tricuspid Valve There is mild tricuspid valve regurgitation. Mild pulmonary hypertension, estimated pulmonary arterial systolic pressure is 46 mmHg. Pericardium/Pleural There is no pericardial effusion. Inferior Vena Cava Normal inferior vena cava with >50% collapse upon inspiration consistent with normal right atrial pressure, 5 mmHg. Aorta The aortic root size at the sinus of Valsalva is normal. Left Ventricular Outflow Tract Name Value Normal LVOT 2D LVOT Diameter 1.7 cm LVOT Doppler LVOT Peak Gradient 5 mmHg LVOT Mean Gradient 3 mmHg LVOT VTI 25 cm LVOT VTI/AV VTI Ratio 0.7 LVOT Stroke Volume 58 ml LVOT CO 4.8 l/min LVOT CI 2.8 l/min/m2 Pulmonic Valve Name Value Normal RVOT Doppler RVOT Peak Gradient 3 mmHg PV Doppler PV Peak Gradient 5 mmHg Mitral Valve Name Value Normal MV Doppler MV Decel [place] 716 cm/s2 MV PHT 46 ms MV Area (PHT) 4.7 cm2 4.0-5.0 MV Diastolic Function MV E Peak Velocity 115 cm/s MV A Peak Velocity 132 cm/s MV E/A 0.9 MV Decel Time 160 ms Tricuspid Valve Name Value Normal TV Regurgitation Doppler TR Peak Velocity 320 cm/s TR Peak Gradient 41 mmHg Estimated PAP/RSVP RA Pressure 5 mmHg <=5 PA Systolic Pressure 46 mmHg <36 RV Systolic Pressure 46 mmHg <36 Aorta Name Value Normal Ascending Aorta Ao Root Diameter (MM) 2.5 cm Ao Root Diam Index (MM) 1.4 cm/m2 Aortic Valve Name Value Normal AV Doppler AV Peak Velocity 175 cm/s AV Peak Gradient 12 mmHg AV Mean Gradient 6 mmHg AV VTI 33 cm AV Area (Cont Eq VTI) 1.7 cm2 >=3.0 AV Area (Cont Eq [place]) 1.5 cm2 AV Regurgitation 2D LVOT Area 2.3 cm2 Ventricles Name Value Normal LV Dimensions 2D/MM IVS Diastolic Thickness (2D) 0.8 cm 0.6-1.0 IVS Diastole Thickness (MM) 1.1 cm 0.6-0.9 LVID Diastole (2D) 4.2 cm 3.8-5.2 LVID Diastole (MM) 4.5 cm 3.8-5.2 LVIW Diastolic Thickness (2D) 1.2 cm 0.6-0.9 LVIW Diastolic Thickness (MM) 0.9 cm 0.6-0.9 LVID Systole (2D) 2.3 cm 2.2-3.5 LVID Systole (MM) 2.4 cm 2.2-3.5 LVOT Diameter 1.7 cm LV Mass (2D Cubed) 137.13 g 67.00-162.00 LV Mass Index (2D Cubed) 78 g/m2 43-95 Relative Wall Thickness (2D) 0.55 LV Mass (MM Cubed) 156.89 g 67.00-162.00 LV Mass Index (MM Cubed) 89 g/m2 43-95 Relative Wall Thickness (MM) 0.42 LV Fractional Shortening/Ejection Fraction 2D/MM LV Fractional Shortening (2D) 47 % 27-45 LV Fractional Shortening (MM) 47 % 27-45 LV EF (MM Teicholz) 79 % 54-74 LV EF (2D Teicholz) 78 % 54-74 LV Diastolic Volume (4C MOD) 44 ml LV EF (4C MOD) 61 % LV Diastolic Volume (2C MOD) 46 ml LV EF (2C MOD) 64 % LV Diastolic Volume (BP MOD) 47 ml 46-106 LV Diastolic Volume Index (BP MOD) 27 ml/m2 29-61 LV Systolic Volume (BP MOD) 17 ml 14-42 LV Systolic Volume Index (BP MOD) 10 ml/m2 8-24 LV EF (BP MOD) 63 % 54-74 LV Diastolic Length (4C) 6.5 cm LV Systolic Length (4C) 5.5 cm LV Stroke Volume (4C MOD) 27 ml Atria Name Value Normal LA Dimensions LA Dimension (MM) 4.3 cm 2.7-3.8 LA Volume (4C A-L) 49 ml LA Volume (BP A-L) 56 ml RA Dimensions RA Area (4C) 10.4 cm2 <=18.0 Report Signatures
--- OUTSIDE RECORDS SUMMARY | 2024-07-31 10:01 | XMS_ITS | CONTINUITY OF CARE DOCUMENT ---
Author Name crescencio michaelarsen Address Unknown Organization [facility] Address [address] [place] [address] Phone [phone] Care Team Providers Care Traffic Officer Name Role Phone Crow Moran MD Unavailable [phone] LUKE ALANIZ MD Unavailable [phone] LUKE ALANIZ MD Unavailable [phone] PROBLEMS Condition Status Date Provider Notes Pneumonia active Crow Moran MD Hyperlipidemia active Crow Moran MD Peripheral artery disease active Crow sanchez MD Abnormal EKG active Crow Moran MD Cardiology examination active Crow Moran MD ENCOUNTERS Date Type Provider Location Encounter Diag nosis - In-person encounter Office Visit Crow Moran MD [facility] Pneumonia - In-person encounter Office Visit Crow Moran MD [facility] Cardiology examinationAbnormal EKGPeripheral artery diseaseHyperlipidemia VITAL SIGNS Date Observation Value Provider Body Mass Index (Ratio) 20.67 kg/m2 Jie Moran MD blood pressure, cuff size regular Saniya Hensley blood pressure, diastolic 66 mm[Hg] Saniya Hensley blood pressure, systolic 137 mm[Hg] Crescencio Hensley oxygen saturation, oximetry 83 % Cici Hensley respiratory rate E&M 16 /min Cici Ayden pulse rate 82 /min Cici Ayden weight E&M 132 [lb_av] Cici Ayden height E&M 67 [in_i] Ciciroxana Hensley Body Mass Index (Ratio) 20.36 kg/m2 Jie Moran MD blood pressure, cuff size regular Ke rri Vanessa blood pressure, diastolic 72 mm[Hg] Ke rri Vanessa blood pressure, systolic 130 mm[Hg] Richard ri Vanessa oxygen saturation, oximetry 98 % Arleth Mendez respiratory rate E&M 14 /min Arleth danielson pulse rate 79 /min Arleth loredoer weight E&M 130 [lb_av] Arleth Lam lder height E&M 67 [in_i] Arleth Lairde lder ALLERGIES Allergy Name Onset Date Reaction Criticality Status CODEINE High Criticality active HISTORY OF MEDICATION USE Medication Status Instructions Dates Provider Indications Com ments alprazolam 0.25 mg tablet active Arleth Mendez potassium chloride 10 mEq capsule, extended release active Arleth Mendez omeprazole 20 mg capsule,delayed release(DR/EC) active Arleth Galvaner simvastatin 40 mg tablet active Arleth Coleer venlafaxine 150 mg capsule,extended release 24hr active Arleth Galvaner SOCIAL HISTORY Date Observation Value Provider number of grandchildren Crow Moran MD U munira Moran MD smoking status Never smoker Crow Moran MD drug use no Crow Moran MD alcohol use no Crow Moran MD social history E&M S moking History: P atient has never smoked. Crow Moran MD social history reviewed E&M revi ewed - no changes required Crow Moran MD smoking status Never smoker Arleth martinez INSURANCE PROVIDERS Payer name Policy type / Coverage type Sherlyn red libertarian ID U[employer] MEDICARE COMPLETE HMO Other [id number] ADVANCE DIRECTIVES Name Date DISCUSSED - NO DECISION MADE TREATMENT PLAN Date Name Performer [id number],N, S he was dx with bacterial pneumonia over the weekend and she's on a course of antibiotics. Crow Moran MD [id number],S,Fairly normal echo. Crow Moran MD [id number],C, H er ABIs showed normal arterial bloodflow. Crow Moran MD [id number],S, H er updated medication list for this problem includes: Simvastatin 40 Mg Tablet (Simvastatin) Crow Morna MD [id number],S,continues on simvastatin Crow Moran MD [id number],S,check an taya to see situation. Crow Moran MD [id number],C,will order an echo Crow Moran MD Cardiology: S he was dx with bacterial pneumonia over the weekend and she's on a course of antibiotics. Crow Moran MD Cardiology:Fairly normal echo. U munira Moran MD Cardiology: H er ABIs showed normal arterial bloodflow. Crow Moran MD Cardiology: H er updated medication list for this problem includes: Simvastatin 40 Mg Tablet (Simvastatin) Crow Moran MD Cardiology:continues on simvasta tin Crow Moran MD Cardiology:check an taya to see s ituation. Crow Moran MD Cardiology:will order an echo Us kylah Moran MD Date Name Arterial Duplex Bi-L ower EX Complete Echo HISTORY OF PROCEDURES Procedure Date Procedure Name Provider Procedure Notes S tatus EKG Crow Moran MD completed
--- OUTSIDE RECORDS SUMMARY | 2024-07-31 10:04 | XMS_ITS | Continuity of Care Document ---
Author Organization [facility] [place] [address] [place] [address] [address] [place] [address] Phone Care Team Providers Care Library Science Professor Name Role Phone Chao REYNOLDS FACS, Eulalio Unavailable Unavailab le Advance Directives Directive Yes / No Effective Date File Name No Information Encounters Encounter Description Practice Location Reason(s) For Visit Diagnoses Date Provider Providers Copied on Encounter [facility], [address] [place] [address] [address], [place], [place], [id number], tel:[phone] SEC Renita Sanchez No Information 6200 6 Chao Tsai. [address] [place] [address], [address], [place], [place], [address], . tel:[phone] Referring Provider: Eulalio Garcia, [address] [place] [address] [address], [place], [address] . tel:[phone] Family History Family Member Type Diagnosis Age At Onset No Information Payers Payer name Insurance type Covered constitution party ID Authoriza tion(s) [place] [id number] Social History Type Description Quantity Date Captured [...]
== END 2024-07-31 09:25 | disposition home or self-care (01) ==
PROVIDERS: Visit Provider Internal Medicine Cardiovascular Disease
DX: I08.2 Rheumatic disorders of both aortic and tricuspid valves (principal); I27.0 Primary pulmonary hypertension
CPT/HCPCS: 93306

== ENCOUNTER 2024-10-18 08:12 | Outpatient (CLI) | payer MEDICARE, BC, SELFPAY ==
--- NOTE | ~2024-10-18 | NM_ITS ---
EXAMINATION: NM alma stress w perfusion DATE: 10/18/2024 12:13 INDICATION: Other forms of dyspnea TECHNIQUE: Rest images were obtained following intravenous administration of 11.9 mCi Tc99m tetrofosm in (Myoview). The patient was infused intravenously with Lexiscan (Regadenoson). Then, 34.5 mCi Tc99m tetrofosmin (Myoview) was administered intravenously, and stress images were obtained. Data was rashawn nstructed into short axis and horizontal and vertical long axis SPECT images. Gated SPECT images were also obtained. COMPARISON: None. FINDINGS: There is no definite reversible or fixed perfusion abnormality to suggest ischemia or infar ction. There is normal left ventricular chamber size, wall motion and ejection fraction. Left ventr icular ejection fraction measures >70%. IMPRESSION: 1. Normal myocardial perfusion at rest and during stress. 2. Left ventricular ejection fraction measuring >70%. Reviewed, dictated and finalized at location A.
--- OUTSIDE RECORDS SUMMARY | 2024-10-18 08:15 | XMS_ITS | Patient Health Record ---
Author Organization [facility] Address [address] [place] [address] Care Team Providers Care Pony Ride Attendant Name Role Phone Jasvir Zaldivar Unavailable [phone] Iwona Ross Unavailable Unavailable Allergies Allergen (clinical drug ingredient) Drug/Non Drug Allergy documented on EMR Reaction Allergy Type Onset Date Status codeine Codeine Unknown Drug Allergy Active Reason For Referral No Information Medications Medication SIG (Take, Route, Fr equency, Duration) Notes Start Date End Date Status Effexor Active Simvastatin 20 MG 1 tablet in the even ing Orally Once a day Active Xanax 0.25 MG 1 tablet Orally Three times a day Active Omeprazole 40 MG 1 capsule Orally Once a day Active Aspirin 81 MG 1 tablet Orally Once a day Active Wellbutrin 75 MG 2 tablets Orally Three times a day Active Problems Problem Type SNOMED Code ICD Code Onset Dates Problem Status W/U Status Risk Notes Problem Atherosclerosis of [place] arteries of the extremities (019310426933167) 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) Active confirmed Plan Of Treatment No Information Insurance Providers Payer Name Payer Address Payer Phone Subscriber Number Group Number Insured Name Patient Relationship to Insured Coverage Start Date Coverage End Date xx[place]ARE [place] [address] [address] [place] [id number] Letty Rothman Self - patient is the insured 8 [facility] [address] [address] [place] [phone] [id number] PLAN F Letty Rothman Self - patient is the insured 2 Medical (General) History Medical History History ICD Code High Cholesterol depression gastroesophageal reflux disease (GERD) Surgical History Surgery Date(Month/Year) L LE diagnostic angiogram 06/10/14 Hip Replacement right femur fracture Lumbar
--- OUTSIDE RECORDS SUMMARY | 2024-10-18 08:15 | XMS_ITS | Clinical Summary ---
Author Organization [facility] Address [address] [facility] [place] [address] Care Team Providers Care Food Service Order Clerk Name Role Phone Unavailable Primary Care Provider Unavailabl e Source Comments [facility],non-owned Affiliates and Associated Physician Practices is amultiple site organization consisting of ambulatory clinics and hospital sitesin [place], [place], [place] and [place]. This disclosure is being madepursuant to the Care Everywhere program and may not contain all information available regarding this patient. 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 Gender Identity Not on file Sexual Orientation Not on file Plan of Treatment Health Maintenance Due Date Last Done Comments BONE DENSITY TESTING 1945 DTAP/TDAP/TD VACCINES (1 - Tdap) 09/06/1963 PNEUMOCOCCAL VACCINE 50+ (1 of 1 - PCV) 1994 ZOSTER VACCINE (1 of 2) 1994 Respiratory Syncytial Virus (RSV) Vaccine Pt: or over 60 yrs (1 - 1-dose 75+ series) 09/06/2019 COVID-19 VACCINE ( - 2023-2 5 season) 2024 DEPRESSION SCREENING 06/27/2024 INFLUENZA VACCINE (Season Ended) 2025 HEPATITIS B VACCINE Aged Out No longe r eligible based on patient's age to complete this topic HIB VACCINE Aged Out No longer eligi ble based on patient's age to complete this topic HPV VACCINE Aged Out No longer eligi ble based on patient's age to complete this topic MENINGOCOCCAL (Group B) VACC INE SHARED DECISION-MAKING Aged Out No longer eligibl e based on patient's age to complete this topic MENINGOCOCCAL GROUPS A/C/Y/W VACCINE Aged Out No longer eligible b ased on patient's age to complete this topic Insurance MEDICARE [place]
--- OUTSIDE RECORDS SUMMARY | 2024-10-18 08:15 | XMS_ITS | CONTINUITY OF CARE DOCUMENT ---
Author Name crescencio michaelarsen Address Unknown Organization [facility] Address [address] [place] [address] Phone [phone] Care Team Providers Care [place] Line Attendant Name Role Phone Crow Moran MD Unavailable [phone] LUKE ALANIZ MD Unavailable [phone] LUKE ALANIZ MD Unavailable [phone] PROBLEMS Condition Status Date Provider Notes Cardiology examination active Crow Moran MD Abnormal EKG active Crow Moran MD Peripheral artery disease active Crow sanchez MD Hyperlipidemia active Crow Moran MD Pneumonia active Crow Moran MD ENCOUNTERS Date Type Provider Location Encounter Diag nosis - In-person encounter Office Visit Crow Moran MD [place] [facility] Pneumonia - In-person encounter Office Visit Crow Moran MD [place] [facility] Cardiology examinationAbnormal EKGPeripheral artery diseaseHyperlipidemia VITAL [...] Policy type / Coverage type Sherlyn red green party ID UHC MEDICARE COMPLETE HMO Other [id number] ADVANCE DIRECTIVES Name Date DISCUSSED - NO DECISION MADE TREATMENT PLAN Date Name Performer [id number],N, S he was dx with bacterial pneumonia over the weekend and she's on a course of antibiotics. Crow Moran MD [id number],S,Fairly normal echo. Crow Moran MD [id number],C, H er ABIs showed normal arterial bloodflow. Crow Moran MD [id number],S, H er updated medication list for this problem includes: Simvastatin 40 Mg Tablet (Simvastatin) Crow Moran MD [id number],S,continues on simvastatin Crow Moran MD [id number],S,check an taya to see situation. Crow Moran MD [id number],C,will order an echo Crow Moran MD Cardiology: [...]
--- OUTSIDE RECORDS SUMMARY | 2024-10-18 08:23 | XMS_ITS | CONTINUITY OF CARE DOCUMENT ---
Author Name crescencio michaelarsen Address Unknown Organization [facility] Address [address] [place] [address] Phone [phone] Care Team Providers Care Electron Microprobe Operator Name Role Phone Crow Moran MD Unavailable LUKE ALANIZ MD Unavailable [phone] LUKE ALANIZ MD Unavailable [phone] PROBLEMS Condition Status Date Provider Notes Cardiology examination active Crow Moran MD Abnormal EKG active Crow Moran MD Peripheral artery disease active Crow sanchez MD Hyperlipidemia active Crow Moran MD Pneumonia active Crow Moran MD ENCOUNTERS Date Type Provider Location Encounter Diag nosis - In-person encounter Office Visit Crow Moran MD [place] [facility] Pneumonia - In-person encounter Office Visit Crow Moran MD [place] [facility] Cardiology examinationAbnormal EKGPeripheral artery diseaseHyperlipidemia VITAL [...] Policy type / Coverage type Sherlyn red republican ID UHC MEDICARE COMPLETE HMO Other [id number] ADVANCE DIRECTIVES Name Date DISCUSSED - NO DECISION MADE TREATMENT PLAN Date Name Performer [id number],N, S he was dx with bacterial pneumonia over the weekend and she's on a course of antibiotics. Crow Moran MD [id number],S,Fairly normal echo. Crow Moran MD [id number],C, H er ABIs showed normal arterial bloodflow. Crow Moran MD [id number],S, H er updated medication list for this problem includes: Simvastatin 40 Mg Tablet (Simvastatin) Crow Moran MD [id number],S,continues on simvastatin Crow Moran MD [id number],S,check an taya to see situation. Crow Moran MD [id number],C,will order an echo Crow Moran MD Cardiology: [...]
--- NOTE | 2024-10-18 08:46 | EST_ITS ---
Patient Info Name: Letty Rothman Age: 79 years : 1945 Gender: Female Ht: 66 in Wt: 138 lbs BSA: 1.71 m2 Exam Date: 10/18/2024 9:21 AM Exam Location: Echo Lab Patient Status: Outpatient Admit Date: 10/18/2024 Staff Ordering Physician: Ronak Ferreira DO Attending Provider: Ronak Ferreira DO Exercise Technologist: Nakita Mercado RDCS Exercise Physician: Ronak Ferreira DO Exam Type: CA stress alma w NM Study Info Indications R06.09 - Other forms of dyspnea A regadenoson stress test was performed. Summary 1. 1. Negative lexiscan stress test for ischemic ST changes by ECG criteria. 2. 2. Baseline hypertension. 3. 3. Nuclear scan to follow and will be reported separately. Please correlate with it. 4. 4. Patient informed of the above results. Protocol: Lexiscan Stress ECG Details Stage: REST Duration (min): 5 min : 31 sec HR (bpm): 76 SBP (mmHg): 143 DBP (mmHg): 86 Stage: REST Duration (min): 55 min : 6 sec HR (bpm): 81 SBP (mmHg): 143 DBP (mmHg): 86 Stage: STAGE 1 Duration (min): 1 min : 0 sec HR (bpm): 92 SBP (mmHg): 161 DBP (mmHg): 76 Stage: RECOVERY Duration (min): 1 min : 0 sec HR (bpm): 90 SBP (mmHg): 161 DBP (mmHg): 76 Stage: RECOVERY Duration (min): 2 min : 0 sec HR (bpm): 86 SBP (mmHg): 148 DBP (mmHg): 74 Stage: RECOVERY Duration (min): 3 min : 0 sec HR (bpm): 85 SBP (mmHg): 135 DBP (mmHg): 76 Stage: RECOVERY Duration (min): 4 min : 0 sec HR (bpm): 85 SBP (mmHg): 135 DBP (mmHg): 76 Stage: RECOVERY Duration (min): 5 min : 0 sec HR (bpm): 83 SBP (mmHg): 136 DBP (mmHg): 78 Stage: RECOVERY Duration (min): 5 min : 3 sec HR (bpm): 83 SBP (mmHg): 136 DBP (mmHg): 78 Rest HR: 81 bpm Peak HR: 92 bpm Rest Sys BP: 143 mmHg Peak Sys BP: 161 mmHg Max Pred HR: 140 bpm % Max Pred HR: 66 % Target HR: 119 bpm Max RPP: 14,812 bpm*mmHg Termination Reason: Completed protocol Cardiac Symptoms: None Total Time: 1 min : 0 sec Rest Molina BP: 86 mmHg Peak Molina BP: 76 mmHg Total Dose: 0.4 mg Resting ECG Sinus rhythm, consider inferior infarct, age indeterminate. Stress ECG No ST changes. Arrhythmias None. Report Signatures
[2024-10-18 11:31] LABS: Alanine Aminotransferase 28 U/L (6-35); Albumin Level 4.2 g/dL (3.5-5.1); Alkaline Phosphatase 124 U/L (38-126); Anion Gap 8 mmol/L (4-12); Aspartate Amino Transferase 34 U/L (14-36); Bilirubin,Total 0.4 mg/dL (0.2-1.3); Blood Urea Nitrogen 26 mg/dL (7-17); Calcium 9.4 mg/dL (8.4-10.2); Carbon Dioxide 30 mmol/L (22-30); Chloride 102 mmol/L (98-107); Cholesterol 151 mg/dL (0-200); Estimated Glomerular Filt Rate 49; Glucose 104 mg/dL (65-110); HDL Direct 54 mg/dL; Magnesium 1.9 mg/dL (1.6-2.3); Potassium 4.2 mmol/L (3.4-5.0); Sodium 140 mmol/L (137-145); Triglycerides 114 mg/dL (<150)
[2024-10-18 11:42] LABS: LDL Cholesterol Direct 71 mg/dL
== END 2024-10-18 08:13 | disposition home or self-care (01) ==
PROVIDERS: Visit Provider Internal Medicine Cardiovascular Disease
DX: E78.5 Hyperlipidemia, unspecified (principal); R06.09 Other forms of dyspnea
CPT/HCPCS: 36415; 78452; 80053; 80061; 83735; 93017; A9502; J2785

== ENCOUNTER 2024-11-20 08:58 | Outpatient (CLI) | payer MEDICARE, BC, SELFPAY ==
--- OUTSIDE RECORDS SUMMARY | 2024-11-20 09:04 | XMS_ITS | Continuity of Care Document ---
Author Organization [facility] Address [address] [place] [address] [address] [place] [address] Phone Care Team Providers Care Sample Wrapper Name Role Phone Chao REYNOLDS FACS, Eulalio Unavailable Unavailab le Advance Directives Directive Yes / No Effective Date File Name No Information Encounters Encounter Description Practice Location Reason(s) For Visit Diagnoses Date Provider Providers Copied on Encounter [facility], [address] [place] [address] [address], [place], [place], [address], tel:[phone] SEC Renita Sanchez No Information 6200 6 Chao Tsai. [address] [place] [address], [address], [place], [place], [address], . tel:[phone] Referring Provider: Eulalio Garcia, [address] [place] [address] [address], [place], [address] . tel:[phone] Family History Family Member Type Diagnosis Age At Onset No Information Payers Payer name Insurance type Covered constitution party ID Authoriza tion(s) Medicare [place] MB [id number] Social History Type Description Quantity Date Captured [...]
--- OUTSIDE RECORDS SUMMARY | 2024-11-20 09:04 | XMS_ITS | Continuity of Care Document ---
Author Organization [facility] Address [address] [place] [address] Phone Care Team Providers Care Control Area Operator Name Role Phone Michael Moreau MD Unavailable Unavailable Advance Directives Directive Yes / No Effective Date File Name No Information Encounters Encounter Description Practice Location Reason(s) For Visit Diagnoses Date Provider Providers Copied on Encounter [facility], [address], [place], [place], [address] , tel: [phone] [facility] DEPRESSIVE DISORDER NECNONSPECIF SKIN ERUPT NEC 0-200 5 [address]. [address], [place], [id number] , [place]. tel: [phone] [facility], [address], [place], [place], [address] , [place] tel: [phone] [facility] Care GENERALIZED ANXIETY DISLONG-TERM USE MEDS NECOSTEOPOROSIS NOS 2-200 5 Pl[address] Rodriguez. [address], ORBERTO [place], [id number] , [place]. tel: [phone] [facility], [address], [place], [place], [address] , [place] tel: [phone] [facility] ABDMNAL PAIN EPIGASTRICABNORMAL WEIGHT GAINHYPERLIPIDEMIA NEC/NOS October-0 2-200 5 [address]. [address], [place]ERTO [place], [id number] , [place]. tel: [phone] [facility], [address], [place], [place], [address] , tel: [phone] [facility] COUGHREFLUX ESOPHAGITIS 4-200 5 [address]. [address], [place], [address] , [place]. tel: [phone] [facility], [address], [place], [place], [address] , [place] tel: [phone] [facility] Primary Care CHR AIRWAY OBSTRUCT NECTRACHEA/BRONCHUS DIS NEC Mar-0 4-200 5 [address]. [address], ROBERTO [place], [id number] , [place]. tel: [phone] [facility], [address], [place], [place], [address] , [place] tel: [phone] [facility] Care CELLULITIS OF BUTTOCKBENIGN HYPERTENSION 3-200 4 [address]. [address], ROBERTO [place], [id number] , [place]. tel: [phone] [facility], [address], [place], [place], [address] , [place] tel: [phone] [facility] NAUSEA WITH VOMITING Dec- 6-200 4 [address]. [address], ROBERTO [place], [id number] , [place]. tel: [phone] [facility], [address], [place], [place], [address] , [place] tel: [phone] [facility] FRACTURE OF PUBIS-CLOSED October- 3-200 4 [address]. [address], ROBERTO [place], [address] , [place]. tel: [phone] [facility], [address], [place], [place], [address] , [place] tel: [phone] [facility] PAIN IN LIMB Sep- 6-200 4 [address]. [address], ROBERTO [place], [id number] , [place]. tel: [phone] [facility], [address], [place], [place], [address] , [place] tel: [phone] [facility] ESOPHAGEAL REFLUX 3-200 4 Plisco [address]. [address], [facility] [place], [address] , [place]. tel: [phone] [facility], [address], [place], [place], [address] , [place] tel: [phone] [facility] Care JOINT PAIN-PELVISBACKACHE NOS 9-200 4 [address]. [address], [place], [address] , [place]. tel: [phone] [facility], [address], [place], [place], [address] , [place] tel:[phone] [facility] Care VACCIN FOR INFLUENZA 7-200 3 Plisco [address]. [address], [facility] [place] [place], [address] , [place]. tel: [phone] [facility], [address], [place], [place], [address] , [place] tel:[phone] [facility] ACUTE URI NOS 6-200 3 [address]. [address], [facility] [place] [place], [address] , [place]. tel: [phone] [facility], [address], [place], [place], [address] , [place] tel: [phone] [facility] Care SKIN HYPERTRO/ATROPH NOS 5-200 3 [address]. [address], [place], [address] , [place]. tel: [phone] [facility], [address], [place], [place], [address] , [place] tel:[phone] [facility] HYPERTENSION NOS 4-200 2 [address]. [address], [place], [address] , [place]. tel: [phone] [facility], [address], [place], [place], [address] , tel: [phone] [facility] Care ACUTE SINUSITIS NOS 2-200 1 [address]. [address], [facility] [place] [place], [id number] , [place]. tel: [phone] [facility], [address], [place], [place], [address] , tel: [phone] [facility] DIAPHRAGMATIC HERNIA 1-200 1 [address]. [address], Ana Laura [place], [address] , [place]. tel: [phone] [facility], [address], [place], [place], [address] , tel: [phone] [facility] Care MITRAL STENOSIS Jan-0 8-200 1 [address]. [address], [facility] [place], [id number] , [place]. tel: [phone] [facility], [address], [place], [place], [address] , tel: [phone] [facility] EDEMA Jan-0 3-200 1 [address]. [address], [facility] [place] [place], [address] , [place]. tel: [phone] [facility], [address], [place], [place], [address] , tel: [phone] [facility] DISORDER OF THYROID NOS Vicente-0 5-200 1 [address]. [address], [place], [address] , [place]. tel: [phone] [facility], [address], [place], [place], [address] , tel: [phone] [facility] Primary [facility] SCIATICA 3 1-200 0 Plisco Rodriguez. [address], [facility] [place], [address] , [place]. tel: [phone] Family History Family Member Type Diagnosis Age At Onset No Information Immunizations Vaccine Date Status Comments 65470 - Influenza administered Source: [place] Unspecified 52250 - Influenza administered Source: [place] Unspecified [...]
--- OUTSIDE RECORDS SUMMARY | 2024-11-20 09:04 | XMS_ITS | Patient Health Record ---
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 [address] [address] [place] [phone] [id number] PLAN F Letty Rothman Self - patient is the insured 2 Medical (General) History Medical History History ICD Code High Cholesterol depression gastroesophageal reflux disease (GERD) Surgical History Surgery Date(Month/Year) L LE diagnostic angiogram 06/10/14 Hip Replacement right femur fracture Lumbar
--- OUTSIDE RECORDS SUMMARY | 2024-11-20 09:04 | XMS_ITS | Continuity of Care Document ---
Author Organization [facility] Address [address] [place] [address] Phone Care Team Providers Care Operation Supervisor Name Role Phone Unavailable Unavailable Unavailable Allergies, Adverse Reactions, Alerts Substance Reaction Status Criticality codeine Nausea Active No Information Medications Medication Instructions Dosage Effective Dates (start - stop) Status Comments TEMAZEPAM (unknown strength) Not Available - Active WELLBUTRIN (unknown strength) Not Available - Active EFFEXOR XR (unknown strength) Not Available - Active ALPRAZOLAM (unknown strength) Not Available - Active SIMVASTATIN (unknown strength) Not Available - Active Aspir-81 81 mg tablet,delayed release - Active Procedures Procedure Date XRAY FINGER, 2+ VIEWS POSTOP FOLLOW-UP VISIT XRAY FINGER, 2+ VIEWS POSTOP FOLLOW-UP VISIT XRAY FINGER, 2+ VIEWS APPLY GAUNTLET CAST CAST SUPPLIES GAUNTLET ADULT FIBERGLASS POSTOP FOLLOW-UP VISIT ARTHRODESIS, METACARPOPHLANGEAL JOINT, W / OR W/OUT INTERNAL FIXATION XRAY FINGER, 2+ VIEWS OFFICE/OUTPATIENT VISIT, NEW Advance Directives Directive Yes / No Effective Date File Name No Information Encounters Encounter Description Practice Location Reason(s) For Visit Diagnoses Date Provider Providers Copied on Encounter [facility], [address] [facility], [place], [address], [place] tel:[phone] [facility] post-op right hand (chief complaint) Personal history of other diseases of the musculoskeletal system and connective tissueEncounter for follow-up examination after completed treatment for conditions other than malignant neoplasm No Information Referring Provider: Keith Smith, [address] , [place], [address] . tel:[phone] [facility], [address] [place] [address], [address], [place] tel:[phone] [facility] post-op right hand (chief complaint) Encounter for other orthopedic aftercare No Information Referring Provider: Keith Smith, [address] , [place], [address] . tel:[phone] [facility], [address] [place] [address], [address], [place] tel:[phone] [facility] post-op right hand (chief complaint) Encounter for other orthopedic aftercare Bert Walker. [address] [place] [address], [address], [place]. tel:[phone] Referring Provider: Keith Smith, [address] , [place], [address] . 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 [address] , [place], [place], [id number], [place]. tel:[phone], [address], [place] tel:[phone] [facility] No Information 5 No Information Referring Provider: Keith Smith, [address] , [place], [address] . 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 tel:[phone] Family History Family Member Type Diagnosis Age At Onset Mother Problem (finding) Cardiovascular disease Father Problem (finding) stroke Father Problem (finding) Cardiovascular disease Payers Payer name Insurance type Covered republican ID Authoriza tion(s) Medicare [facility] Admin [id number] [id number] Social History Type Description Quantity Date Captured Comments Alcohol Use Details No Caffeine Use Details Unknown Tobacco Use Status No Information Smoking Status Never smoker Non-Smoking Tobacco Use Details : No Details Available : No Details Available Sex Female Vital Signs Date / Time: Height Weight BMI Pulse Rate Blood Pressure Temperature Respiratory Rate Body Surface Area Head Circumference Head Circ. Percentile Wt./Pawel. Percentile BMI percentile Pulse Ox Inhaled Ox 1:51 PM 67.00 in 58.513 kg (129.00 lbs) 20.2 0 kg/m eter (2) Chief Complaint And Reason For Visit From encounter dated '08/18/2015 13:20'. post-op right hand (chief complaint). Description: Activity level is: without assistance. Work status is: regular work/activity. Status is: improving. Pain level is: 0/10. Pain frequency: rare. No pain medications. Wound healing. No calf tenderness. No fever/chills. No rehabilitation. No nausea/vomiting. No swelling. Home exercise. Not using assistive device. Reason For Referral Reason For Referral No Information Plan Of Treatment Date Type Action Status Future Order: Radiology Order Fi nger(s) X-ray (2+ views) ([id number]), Sent on: Sent History Of Present Illness Encounter Date Complaint History Of Prese nt Illness post-op right hand Activity leve l is: without assistance. Work status is: regular work/activity. Status is: improving. Pain level is: 0/10. Pain frequency: rare. No pain medications. Wound healing. No calf tenderness. No fever/chills. No rehabilitation. No nausea/vomiting. No swelling. Home exercise. Not using assistive device. post-op right hand Activity dominguez l is: dependent. Status is: improving. Pain level is: 0/10. Pain frequency: rare. No pain medications. WB status: full. Wound healing. No calf tenderness. No fever/chills. Rehabilitation. No nausea/vomiting. No swelling. Home exercise. Not using assistive device. Other: Well healed incision. post-op right hand Status is: im proving. Pain level is: 0/10. No pain medications. Wound healing. No fever/chills. No rehabilitation. No swelling. No home exercise. Other: Well healed incision. right thumb Letty Rothman is a 69 year old female. The patient indicates that the primary location is the right thumb. She presents with pain and stiffness on the right side. The symptoms occur constantly. Currently the patient states that the symptoms are moderate. Her pain is primarily at the base of her thumb. She rates her current pain as 5/10. This limits her everyday activities. 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 Letty states that the symptoms are relieved by rest. In addition to right thumb the patient is also experiencing night pain. Functional Status Date Functional Assessmen t Pain Score 0/10 Instructions Date Instruction Additional Infor mali Advance activity as tolerated Ms. Rothman is doing g reat following her fusion on her right thumb. After discussion about a splint vs cast, Ms. Rothman decided to proceed with the cast because she thinks she will be more comfortable in it. A thumb spica cast to the base of the thumbnail was applied at today's visit. Education on cast care was provided and she was educated on elevation as much as possible. If she has any questions or concerns she will call the office otherwise she will follow up with Dr. Medina in 3-4 weeks. She was appreciative. Related to Encounter for other orthopedic aftercare elevate limb above heart Limit activity Elevate as needed Discussed post op care/precautio ns Assessments Type Assessment Date assessment Personal history of other diseases of the musculoskeletal system and connective tissue assessment Encounter for follow -up examination after completed treatment for conditions other than malignant neoplasm Patient Care Teams Name Effective Dates (start - stop) Status Members No Information
--- OUTSIDE RECORDS SUMMARY | 2024-11-20 09:04 | XMS_ITS | Clinical Summary ---
Author Organization [facility] Address [address] [place] [address] Care Team Providers Care Mold Preparer Name Role Phone Unavailable Primary Care Provider Unavailabl e Source Comments [facility],non-owned Affiliates and Associated Physician Practices is amultiple site organization consisting of ambulatory clinics and hospital sitesin [place], [place], [place] and [place]. This disclosure is being madepursuant to the Care Everywhere program and may not contain all information available regarding this patient. 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
[2024-11-20 10:41] LABS: Anion Gap 8 mmol/L (4-12); Blood Urea Nitrogen 29 mg/dL (7-17); Calcium 9.8 mg/dL (8.4-10.2); Carbon Dioxide 29 mmol/L (22-30); Chloride 101 mmol/L (98-107); Estimated Glomerular Filt Rate 50; Glucose 117 mg/dL (65-110); Magnesium 2.3 mg/dL (1.6-2.3); Sodium 138 mmol/L (137-145)
== END 2024-11-20 08:59 | disposition home or self-care (01) ==
PROVIDERS: PCP Family Medicine; Visit Provider Internal Medicine Cardiovascular Disease
DX: R60.0 Localized edema (principal)
CPT/HCPCS: 36415; 80048; 83735

== ENCOUNTER 2025-01-07 10:13 | Emergency (ER) | payer MEDICARE, BC, SELFPAY ==
--- NOTE | ~2025-01-07 | XR_ITS ---
XR ankle RT 2V Ordering provider: Maria Fernanda Rodriguez APRN History: . fall . Comparison: None. FINDINGS: BONES: No acute fracture or dislocation. JOINT SPACES: Normal. SOFT TISSUES: Normal. IMPRESSION: No acute osseous abnormality of the right ankle. Reviewed, dictated and finalized at location A.
--- NOTE | ~2025-01-07 | XR_ITS ---
XR hip RT 2V w AP pelvis Ordering provider: Maria Fernanda Rodriguez APRN History: . fal . Comparison: None. FINDINGS: BONES: No acute fracture or dislocation. HIP JOINT SPACES: Right hip arthroplasty. Moderate left hip osteoarthritic changes. SACROILIAC JOINT SPACES/LUMBAR SPINE: The sacroiliac joint spaces are normal. Mild degenerative marti es of the visualized lower lumbar spine. PUBIC SYMPHYSIS: Normal. SOFT TISSUES: Normal. IMPRESSION: No acute osseous abnormality pelvis. Right hip arthroplasty. Reviewed, dictated and finalized at location A.
--- NOTE | ~2025-01-07 | XR_ITS ---
XR knee RT min 4V Ordering provider: Maria Fernanda Rodriguez APRN History: . fall . Comparison: None. FINDINGS: BONES: Fracture in the proximal right fibula. Osteopenia of the bones. Small bony fragment seen near to the medial femoral condyle which may be ossification in the ligament or chip fracture. JOINT SPACES: Chondrocalcinosis of the menisci. Slight narrowing of the lateral compartment. SOFT TISSUES: Normal. IMPRESSION: Fracture proximal right fibula. Mild to moderate osteoarthritic changes. Chondrocalcinosis. Reviewed, dictated and finalized at location A.
[2025-01-07 10:18] VITALS: BP 131/57; PULSE 91; RESP 18; TEMP 36.8; O2SAT 98
--- OUTSIDE RECORDS SUMMARY | 2025-01-07 10:18 | XMS_ITS | Clinical Summary ---
Author Organization [facility] Address [address] [facility] [place] [address] Care Team Providers Care Manager Room Name Role Phone Unavailable Primary Care Provider Unavailabl e Source Comments [facility],non-owned Affiliates and Associated Physician Practices is amultiple site organization consisting of ambulatory clinics and hospital sitesin [place], [place]. This disclosure is being madepursuant to the Care Everywhere program and may not contain all information available regarding this patient. 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
--- NOTE | 2025-01-07 10:35 | ED.GENADULT ---
HPI - General Adult General Chief complaint: Extremity Injury, Lower <Maria Fernanda Matta October, Last Filed: 01/07/25 12:35> Stated complaint: fall, R leg pain <Maria Fernanda Matta October, Last Filed: 01/07/25 12:35> Time Seen by Provider: 01/07/25 10:16 <Maria Fernanda Matta October, Last Filed: 01/07/25 12:35> History of Present Illness HPI narrative: Letty Rothman is a 79-year-old female with past medical history of hyperlipidemia, peripheral artery disease, neuropathy who presents today after having a mechanical ground level fall at around 2:30 a.m. this morning. She states that she lives at home by herself and she was in her recliner and when she went to get up she somehow tripped and fell onto her right knee. She states that she was able to get herself up on her own and was able to ambulate she thought she could walk off the pain that she was having in her right knee she is having continued right knee pain and now slightly right hip pain so she decided to get checked out. She denies hitting her head no loss of consciousness she is not on any anticoagulants. <Maria Fernanda Matta October, Last Filed: 01/07/25 12:35> Related Data Home medications: Home Medications ?Medication ?Instructions ?Recorded ?Confirmed ?Last Taken ?Type omeprazole 20 mg capsule,delayed mg 07/15/22 11/20/24 Unknown History release valacyclovir 1 gram tablet 1,000 mg PO DAILY PRN 06/15/24 11/20/24 Unknown History aspirin 81 mg tablet 81 mg PO DAILY 11/20/24 11/20/24 Unknown History <Maria Fernanda Matta October, Last Filed: 01/07/25 12:35> Allergies/adverse reactions: Allergies Allergy/AdvReac Type Severity Reaction Status Date / Time codeine AdvReac Nausea Verified 01/07/25 10:38 <Maria Fernanda Matta October, Last Filed: 01/07/25 12:35> Review of Systems Review of Systems: All systems reviewed & are unremarkable except as noted in HPI and below <Maria Fernanda Matta October, Last Filed: 01/07/25 12:35> [facility] Past Medical History Medical History: Medical History Generalized pruritus of unknown etiology HLD (hyperlipidemia) Depression Anxiety GERD (gastroesophageal reflux disease) <Maria Fernanda Rodriguez APRN - Last Filed: 01/07/25 12:35> Surgical History Surgical History: Surgical History History of thumb surgery <Maria Fernanda Rodriguez APRN - Last Filed: 01/07/25 12:35> Social History Social History: Social History Smoking status: Never smoker Do You Feel Safe in your Home?: Yes Lack of Transportation: YES Lack of Food: Never True Current Housing: I Have Housing Concerned About Future Housing: No Difficulty Paying Gas/Electric Bills: No Difficulty Paying for Meds: No Currently Unemployed: No Education: Associate Degree Difficulty w/ Childcare or Family Care: No <Maria Fernanda Rodriguez APRN - Last Filed: 01/07/25 12:35> Exam Narrative: GENERAL: Well-appearing, well-nourished, and in no acute distress. HEAD: Normocephalic, atraumatic. EYES: PERRLA and EOMI. ENT: Nares clear, no rhinorrhea or epistaxis. Mucous membranes moist. Oropharynx without tonsillar hypertrophy exudate or other lesions. NECK: Supple. No adenopathy or masses. No carotid bruits or JVD CHEST: Clear to auscultation. No respiratory distress. No wheezes rales or rhonchi HEART: Regular rate and rhythm. No murmur heard. Normal peripheral pulses. ABDOMEN: Soft, nontender, nondistended, normal active bowel sounds. EXTREMITIES: Normal range of motion. No edema. Positive pain to the lateral right hip and right knee. No obvious deformity no obvious ecchymosis. There is some mild erythema to right foot patient states this is her baseline related to her peripheral artery disease and that actually looks improved at this time. Strong pedal pulses present. SKIN: Warm, dry, no rash. NEURO: No focal deficits. Alert and oriented x3. PSYCH: Normal mood and affect. <Maria Fernanda Rodriguez APRN - Last Filed: 01/07/25 12:35> Course BREAK OFF WORKER/PA Physician Supervision I agree with midlevel documentation; I performed the medical decision making component of this evaluation. X-ray on my independent interpretation does show proximal fibular fracture, patient still ambulating on this, adamantly refuses to stay in the hospital, feels comfortable going home as she has good family support, ortho agreeable to outpatient follow-up. <Lucille Washington MD - Last Filed: 01/07/25 12:43> Vital Signs Vital signs: Vital Signs Temperature 98.2 F 01/07/25 10:18 Pulse Rate 91 01/07/25 10:18 Respiratory Rate 18 01/07/25 10:18 Blood Pressure 131/57 L 01/07/25 10:18 Pulse Oximetry 98 01/07/25 10:18 Temperature 98.2 F 01/07/25 10:18 Pulse Rate 100 01/07/25 12:30 Respiratory Rate 20 01/07/25 12:30 Blood Pressure 131/95 H 01/07/25 12:30 Pulse Oximetry 97 01/07/25 12:30 <Maria Fernanda Rodriguez APRN - Last Filed: 01/07/25 12:35> Vital Signs Temperature 98.2 F 01/07/25 10:18 Pulse Rate 91 01/07/25 10:18 Respiratory Rate 18 01/07/25 10:18 Blood Pressure 131/57 L 01/07/25 10:18 Pulse Oximetry 98 01/07/25 10:18 Temperature 98.2 F 01/07/25 10:18 Pulse Rate 100 01/07/25 12:30 Respiratory Rate 20 01/07/25 12:30 Blood Pressure 131/95 H 01/07/25 12:30 Pulse Oximetry 97 01/07/25 12:30 <Lucille Washington MD - Last Filed: 01/07/25 12:43> Medical Decision Making MDM Narrative Medical decision making narrative: 79-year-old female who presents after a mechanical ground level fall around 230 this morning who complains of right knee pain and having some right hip pain. She was ambulatory after the accident and was able to get herself up Exam is consistent with pain to the right knee and mildly to the right lateral hip area strong pulses distally plan to check x-rays and treat her pain with Tylenol Motrin she states she only has pain when she is up ambulating XR: Fracture proximal right fibula. Mild to moderate osteoarthritic changes. Chondrocalcinosis. No acute osseous abnormality pelvis. Right hip arthroplasty. No acute osseous abnormality of the right ankle. Consulted with Orthopedics Dr. Bonds who recommends pt to be in nina wrap with knee immobilizer and she may be weight bearing as tolerated and typically will not require surgical repair. Patient is placed in nina wrap and knee immobilizer tolerating well, she feels comfortable being d/c home and feels comfortable with ambulating with walker and immobilizer her niece is at the bedside and states that they can stay with her to make sure she is safely getting around. <Maria Fernanda Rodriguez, RUG CLEANING SUPERVISOR - Last Filed: 01/07/25 12:35> Medical Records Medical records reviewed: Yes I reviewed the external patient's medical records. <Maria Fernanda Rodriguez, RUG CLEANING SUPERVISOR - Last Filed: 01/07/25 12:35> Vital Signs Vital Signs: Vital Signs Temperature 98.2 F 01/07/25 10:18 Pulse Rate 91 01/07/25 10:18 Respiratory Rate 18 01/07/25 10:18 Blood Pressure 131/57 L 01/07/25 10:18 Pulse Oximetry 98 01/07/25 10:18 Temperature 98.2 F 01/07/25 10:18 Pulse Rate 100 01/07/25 12:30 Respiratory Rate 20 01/07/25 12:30 Blood Pressure 131/95 H 01/07/25 12:30 Pulse Oximetry 97 01/07/25 12:30 Vitals reviewed by me <Maria Fernanda Matta October, RUG CLEANING SUPERVISOR - Last Filed: 01/07/25 12:35> Vital Signs Temperature 98.2 F 01/07/25 10:18 Pulse Rate 91 01/07/25 10:18 Respiratory Rate 18 01/07/25 10:18 Blood Pressure 131/57 L 01/07/25 10:18 Pulse Oximetry 98 01/07/25 10:18 Temperature 98.2 F 01/07/25 10:18 Pulse Rate 100 01/07/25 12:30 Respiratory Rate 20 01/07/25 12:30 Blood Pressure 131/95 H 01/07/25 12:30 Pulse Oximetry 97 01/07/25 12:30 <Lucille Washington MD - Last Filed: 01/07/25 12:43> Imaging Data Radiologist's impression: Impressions Ankle X-Ray 01/07/25 11:08 IMPRESSION: No acute osseous abnormality of the right ankle. Knee X-Ray 01/07/25 11:15 IMPRESSION: Fracture proximal right fibula. Mild to moderate osteoarthritic changes. Chondrocalcinosis. Hip/Pelvis X-Ray 01/07/25 11:24 IMPRESSION: No acute osseous abnormality pelvis. Right hip arthroplasty. <Maria Fernanda Matta October, RUG CLEANING SUPERVISOR - Last Filed: 01/07/25 12:35> Discharge Plan Discharge Clinical Impression: Closed fracture of proximal end of fibula Qualifiers: Encounter type: initial encounter Fracture morphology: other fracture Laterality: right Qualified Code(s): S82.831A - Other fracture of upper and lower end of right fibula, initial encounter for closed fracture <Maria Fernanda Matta October, RUG CLEANING SUPERVISOR - Last Filed: 01/07/25 12:35> Patient Disposition: Home <Maria Fernanda Matta October, RUG CLEANING SUPERVISOR - Last Filed: 01/07/25 12:35> Condition: Stable <Maria Fernanda Matta October, RUG CLEANING SUPERVISOR - Last Filed: 01/07/25 12:35> Instructions: Antibiotic Form <Maria Fernanda Matta October,N - Last Filed: 01/07/25 12:35> Additional Instructions: Continue to wear the nina wrap and the knee immobilizer, you may bear weight as tolerated. Use a walker to get around to help with ambulation Elevate/ Ice to help with swelling and pain Continue Tylenol and Motrin for pain Follow up with your PCP in 1 week Follow up with orthopedics in 1 week IF you develop any worsening symptoms or have any other concerns return to the ER. <Maria Fernanda Matta October, RUG CLEANING SUPERVISOR - Last Filed: 01/07/25 12:35> Patient Language: Persian <Maria Fernanda Matta October, RUG CLEANING SUPERVISOR - Last Filed: 01/07/25 12:35> Prescriptions: New (DME) walker Misc See Rx Instructions .Route Qty: 1 0RF Rx Instructions: As directed No Action valacyclovir 1 gram tablet 1,000 mg PO DAILY PRN simvastatin 40 mg tablet 40 mg PO DAILY Qty: 90 2RF venlafaxine 150 mg capsule,extended release 24hr 150 mg PO DAILY Qty: 90 1RF aspirin 81 mg tablet 81 mg PO DAILY omeprazole 20 mg capsule,delayed release(DR/EC) furosemide 20 mg tablet 20 mg PO QAM Qty: 30 5RF spironolactone 25 mg tablet 12.5 mg PO DAILY Qty: 45 0RF trazodone 50 mg tablet 50 mg PO QHS PRN (Reason: insomnia) Qty: 30 0RF buspirone 5 mg tablet See Rx Instructions .ROUTE .COMPLEX Qty: 90 0RF Dose Instruction: TAKE 1 TABLET BY MOUTH THREE TIMES DAILY NEEDED FOR ANXIETY Rx Instructions: TAKE 1 TABLET BY MOUTH THREE TIMES DAILY NEEDED FOR ANXIETY <Maria Fernanda Rodriguez, RUG CLEANING SUPERVISOR - Last Filed: 01/07/25 12:35> Follow-up/Referrals: Ladonna Quarles DO [Primary Care Provider] - 1 Week Tristin Bonds MD [Physician] - 1 Week <Maria Fernanda Rodriguez APRN - Last Filed: 01/07/25 12:35> Time of Disposition: 12:07 <Maria Fernanda Rodriguez APRN - Last Filed: 01/07/25 12:35> 12:07 <Lucille Washington MD - Last Filed: 01/07/25 12:43>
--- OUTSIDE RECORDS SUMMARY | 2025-01-07 10:47 | XMS_ITS | Patient Health Record ---
Author Organization 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 Plan Of Treatment No Information Insurance Providers Payer Name Payer Address Payer Phone Subscriber Number Group Number Insured Name Patient Relationship to Insured Coverage Start Date [facility]age End Date [facility] [address] [address] [place] [id number] [phone] [id number] Letty Rothman Self - patient is the insured 8 [facility] [address] [address] [place] [address] [id number] PLAN Letty Alexandre Self - patient is the insured 2 Medical (General) History Medical History History ICD Code High Cholesterol depression gastroesophageal reflux disease (GERD) Surgical History Surgery Date(Month/Year) L LE diagnostic angiogram 06/10/14 Hip Replacement right femur fracture Lumbar
--- OUTSIDE RECORDS SUMMARY | 2025-01-07 10:47 | XMS_ITS | Clinical Summary ---
Author Organization [facility] Address [address] [place] [address] Care Team Providers Care Alliance Consultant Name Role Phone Unavailable Primary Care Provider Unavailabl e Source Comments [facility],non-owned Affiliates and Associated Physician Practices is amultiple site organization consisting of ambulatory clinics and hospital sitesin [place], [place], [place] and [place]. This disclosure is being madepursuant to the Care Everywhere program and may not contain all information available regarding this patient. 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
[2025-01-07] MEDS: ACETAMINOPHEN 500 MG TABLET 1000 MG PO (11:10)
[2025-01-07] MEDS: IBUPROFEN 600 MG TABLET PO (11:11)
[2025-01-07 12:30] VITALS: BP 131/95; PULSE 100; RESP 20; O2SAT 97
== END 2025-01-07 12:35 | disposition home or self-care (01) ==
PROVIDERS: Emergency Provider Nurse Practitioner Family; PCP Family Medicine
DX: S82.831A Other fracture of upper and lower end of right fibula, initial encounter for closed fracture (principal); I73.9 Peripheral vascular disease, unspecified; E78.5 Hyperlipidemia, unspecified; G62.9 Polyneuropathy, unspecified; K21.9 Gastro-esophageal reflux disease without esophagitis; F41.9 Anxiety disorder, unspecified; F32.A Depression, unspecified; Z96.641 Presence of right artificial hip joint; M11.261 Other chondrocalcinosis, right knee; Z79.82 Long term (current) use of aspirin; Z79.899 Other long term (current) drug therapy; W01.0XXA Fall on same level from slipping, tripping and stumbling without subsequent striking against object, initial encounter
CPT/HCPCS: 73502; 73564; 73600; 99284; A9270

== ENCOUNTER 2025-02-18 14:21 | Emergency (ER) | payer MEDICARE, BC, SELFPAY ==
--- OUTSIDE RECORDS SUMMARY | 2005-04-04 19:00 | XMS_ITS | Continuity of Care Document ---
Author Organization [facility] Address [address] [place] [address] Phone Care Team Providers Care Newspaper Carriers Supervisor Name Role Phone Michael Moreau MD Unavailable Unavailable Advance Directives Directive Yes / No Effective Date File Name No Information Encounters Encounter Description Practice Location Reason(s) For Visit Diagnoses Date Provider Providers Copied on Encounter [facility], [address], [place], [place], [address] , tel: [phone] [facility] DEPRESSIVE DISORDER NECNONSPECIF SKIN ERUPT NEC 0-200 5 Plisco Rodriguez. [address], [place], [id number] , [place]. tel: [phone] [facility], [address], [place], [place], [address] , [place] tel: [phone] [facility] GENERALIZED ANXIETY DISLONG-TERM USE MEDS NECOSTEOPOROSIS NOS 2-200 5 Plisco Rodriguez. [address], ROB[place]O [place], [id number] , [place]. tel: [phone] [facility], [address], [place], [place], [address] , [place] tel: [phone] [facility] ABDMNAL PAIN EPIGASTRICABNORMAL WEIGHT GAINHYPERLIPIDEMIA NEC/NOS October-0 2-200 5 Plisco Rodriguez. [address], [place], [id number] , [place]. tel: [phone] [facility], [address], [place], [place], [address] , tel: [phone] [facility] COUGHREFLUX ESOPHAGITIS 4-200 5 Plisco Rodirguez. [address], [place], [id number] , [place]. tel: [phone] [facility], [address], [place], [place], [address] , [place] tel: [phone] [facility] CHR AIRWAY OBSTRUCT NECTRACHEA/BRONCHUS DIS NEC Mar-0 4-200 5 Plisco Rodriguez. [address], ROBERTO [place], [id number] , [place]. tel: [phone] [facility], [address], [place], [place], [address] , [place] tel: [phone] [facility] CELLULITIS OF BUTTOCKBENIGN HYPERTENSION 3-200 4 Plisco Rodriguez. [address], ROB[place]O [place], [id number] , [place]. tel: [phone] [facility], [address], [place], [place], [address] , [place] tel: [phone] [facility] NAUSEA WITH VOMITING Dec- 6-200 4 Plisco Rodriguez. [address], ROBERTO [place], [id number] , [place]. tel: [phone] [facility], [address], [place], [place], [address] , [place] tel: [phone] [facility] FRACTURE OF PUBIS-CLOSED October- 3-200 4 Plisco Rodriguez. [address], [place], [id number] , [place]. tel: [phone] [facility], [address], [place], [place], [address] , [place] tel: [phone] [facility] PAIN IN LIMB Sep- 6-200 4 Plisco Rodriguez. [address], [place]O [place], [id number] , [place]. tel: [phone] [facility], [address], [place], [place], [address] , [place] tel: [phone] [facility] ESOPHAGEAL REFLUX 3-200 4 Plisco Rodriguez. [address], [facility] [place], [id number] , [place]. tel: [phone] [facility], [address], [place], [place], [address] , [place] tel: [phone] [facility] JOINT PAIN-PELVISBACKACHE NOS 9-200 4 Plisco Rodriguez. [address], [place], [id number] , [place]. tel: [phone] [facility], [address], [place], [place], [address] , [place] tel:[phone] [facility] VACCIN FOR INFLUENZA 7-200 3 Plisco Rodriguez. [address], [facility] [place], [id number] , [place]. tel: [phone] [facility], [address], [place], [place], [address] , [place] tel:[phone] [facility] ACUTE URI NOS 6-200 3 Plisco Rodriguez. [address], [facility] [place], [id number] , [place]. tel: [phone] [facility], [address], [place], [place], [address] , [place] tel: [phone] [facility] SKIN HYPERTRO/ATROPH NOS 5-200 3 Plisco Rodriguez. [address], [place], [id number] , [place]. tel: [phone] [facility], [address], [place], [place], [address] , [place] tel:[phone] [facility] HYPERTENSION NOS 4-200 2 Plisco Rodriguez. [address], [place], [id number] , [place]. tel: [phone] [facility], [address], [place], [place], [address] , tel: [phone] [facility] ACUTE SINUSITIS NOS 2-200 1 Plisco Rodriguez. [address], [facility] [place], [id number] , [place]. tel: [phone] [facility], [address], [place], [place], [address] , tel: [phone] [facility] DIAPHRAGMATIC HERNIA 1-200 1 Plisco Rodriguez. [address], [place], [id number] , [place]. tel: [phone] [facility], [address], [place], [place], [address] , tel: [phone] [facility] MITRAL STENOSIS Jan-0 8-200 1 Plisco Rodriguez. [address], [facility] [place], [id number] , [place]. tel: [phone] [facility], [address], [place], [place], [address] , tel: [phone] [facility] EDEMA Jan-0 3-200 1 Plisco Rodriguez. [address], [facility] [place], [id number] , [place]. tel: [phone] [facility], [address], [place], [place], [address] , tel: [phone] [facility] DISORDER OF THYROID NOS Vicente-0 5-200 1 Plisco Rodriguez. [address], [place], [id number] , [place]. tel: [phone] [facility], [address], [place], [place], [address] , tel: [phone] [facility] Primary [facility] SCIATICA 3 1-200 0 Plisco Rodriguez. [address], [facility] [place], [address] , [place]. tel: [phone] Family History Family Member Type Diagnosis Age At Onset No Information Immunizations Vaccine Date Status Comments 89320 - Influenza administered Source: [place] Unspecified 04620 - Influenza administered Source: [place] Unspecified Payers Payer name Insurance type Covered democrat ID Authoriza tion(s) No Information Social History Type Description Quantity Date Captured Comments Sex Female Smoking Status No Information Chief Complaint And Reason For Visit No Information Reason For Referral Reason For Referral No Information History Of Present Illness Encounter Date Complaint History Of Prese nt Illness No Information Functional Status Date Functional Assessmen t No Information Instructions Date Instruction Additional Infor mation No Information Assessments Type Assessment Date No Information Patient Care Teams Name Effective Dates (start - stop) Status Members No Information
--- OUTSIDE RECORDS SUMMARY | 2005-11-19 04:00 | XMS_ITS | Continuity of Care Document ---
Author Organization [facility] Address [address] [place] [address] [address] [place] [address] Phone Care Team Providers Care Drilling And Production Superintendent Name Role Phone Chao REYNOLDS FACS, Eulalio Unavailable Unavailab le Advance Directives Directive Yes / No Effective Date File Name No Information Encounters Encounter Description Practice Location Reason(s) For Visit Diagnoses Date Provider Providers Copied on Encounter [facility], [id number] [place] [address] [address], [place], [place], [address], tel:[phone] SEC Renita Sanchez No Information 6200 6 Chao Tsai. [address] [place] [address], [address], [place], [place], [address], . tel:[phone] Referring Provider: Eulalio Garcia, [address] [place] [address] [address], [place], [address] . tel:[phone] Family History Family Member Type Diagnosis Age At Onset No Information Payers Payer name Insurance type Covered alliance party ID Authoriza tion(s) [place] [id number] Social History Type Description Quantity Date Captured [...]
[2025-02-18] VITALS (23 sets, daily range): BP systolic 93–149; BP diastolic 39–82; PULSE 69–176; RESP 15–24; TEMP 36.6; O2SAT 93–100
--- OUTSIDE RECORDS SUMMARY | 2025-02-18 14:26 | XMS_ITS | Clinical Summary ---
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 This disclosure is being madepursuant to the Care Everywhere program and may not contain all information available regarding this patient. 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
--- NOTE | 2025-02-18 14:33 | ECG_ITS ---
Test Date: 2025-02-18 14:39:39 Measurements Intervals [place] Rate: 142 P: 0 AL: 0 QRS: 67 QRSD: 83 T: 12 QT: 285 QTc: 439 Interpretive Statements ATRIAL FIBRILLATION WITH RAPID VENTRICULAR RESPONSE BORDERLINE ST-T WAVE ABNORMALITY- ANT/INF LEADS BASELINE ARTIFACT- I, II, III, AVR, AVL, AVF, V1-V6 ABNORMAL ECG No previous ECG available for comparison Electronically Signed On 02-18-2025 14:59:27 CDT by Ronak Ferreira D.O.
[2025-02-18 15:15] LABS: Hematocrit 43.0 % (37.0-47.0); Hemoglobin 14.7 g/dL (12.0-15.0); Immature Granulocyte Percent A 0.3 % (0-0.5); Lymphocytes Absolute Auto 1.46 K/mm3 (0.9-3.2); Mean Corpuscular HGB Conc 34.2 g/dl (32-36); Mean Corpuscular Hemoglobin 31.5 pg (26-34); Mean Corpuscular Volume 92.1 fl (80-100); Nucleated Red Blood Cells Absolute Auto 0.000 K/mm3 (0.0-0.012); Nucleated Red Blood Cells Perc 0.0 % (0.0-0.2); Platelet Count Result 296 k/mm3 (150-375); Red Blood Count 4.67 M/mm3 (4.2-5.4); White Blood Count 9.0 K/mm3 (4.5-10.0)
[2025-02-18] MEDS: METOPROLOL TARTRATE INJ 5 MG/5 ML VIAL IV PUSH (15:20)
--- OUTSIDE RECORDS SUMMARY | 2025-02-18 15:24 | XMS_ITS | Clinical Summary ---
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 This disclosure is being madepursuant to the Care Everywhere program and may not contain all information available regarding this patient. 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
[2025-02-18 15:27] LABS: INR 0.9; Prothrombin Time 12.5 Seconds (11.1-14.7)
[2025-02-18 15:28] LABS: Partial Thromboplastin Time 26.1 Seconds (22.3-36.8)
[2025-02-18 15:33] LABS: Alanine Aminotransferase 22 U/L (6-35); Albumin Level 4.4 g/dL (3.5-5.1); Alkaline Phosphatase 155 U/L (38-126); Anion Gap 8 mmol/L (4-12); Aspartate Amino Transferase 32 U/L (14-36); Bilirubin,Total 0.3 mg/dL (0.2-1.3); Blood Urea Nitrogen 23 mg/dL (7-17); Calcium 9.4 mg/dL (8.4-10.2); Carbon Dioxide 29 mmol/L (22-30); Chloride 101 mmol/L (98-107); Estimated CRCL calculation 34 ml/min; Estimated Glomerular Filt Rate 46; Glucose 95 mg/dL (65-110); Potassium 4.1 mmol/L (3.4-5.0); Sodium 138 mmol/L (137-145); Total Protein 7.7 g/dL (6.3-8.2)
--- NOTE | 2025-02-18 15:40 | ECG_ITS ---
Test Date: 2025-02-18 15:46:24 Measurements Intervals [place] Rate: 74 P: 60 CT: 136 QRS: 38 QRSD: 93 T: 53 QT: 402 QTc: 446 Interpretive Statements SINUS RHYTHM MINIMAL Q WAVES- INFERIOR LEADS BASELINE ARTIFACT- I, II, III, AVR, AVL, AVF, V1-V6 BORDERLINE ECG Compared to ECG 02/18/2025 14:39:39 Atrial fibrillation no longer present Electronically Signed On 02-18-2025 16:02:47 CDT by Ronak Ferreira D.O.
[2025-02-18 15:41] LABS: NT Pro B Type Natriuretic Pept 558 pg/mL (19.9-100)
[2025-02-18 15:44] LABS: Troponin I < 0.012 ng/mL (0.000-0.034)
--- NOTE | 2025-02-18 15:57 | ED_ITS ---
HPI - General Adult General Chief complaint: Recheck/Abnormal Lab/Rx Stated complaint: abnormal EKG Time Seen by Provider: 02/18/25 15:00 History of Present Illness HPI narrative: Patient is an 79-year-old female who presents ER with AFib with RVR. She was at her PCPs office and referred here. No chest pain. No dizziness. Nose dyspnea. She is without any nausea or vomiting. No history of AFib in the past. She is not anticoagulated. Related Data Home Medications ?Medication ?Instructions ?Recorded ?Confirmed ?Last Taken ?Type valacyclovir 1 gram tablet 1,000 mg PO DAILY PRN 06/1502/18/25 Unknown History aspirin 81 mg tablet 81 mg PO DAILY 11/20/2401/26 Unknown History Allergies Allergy/AdvReac Type Severity Reaction Status Date / Time codeine AdvReac Nausea Verified 02/18/25 14:42 Review of Systems 2 Review of Systems: All systems reviewed & are unremarkable except as noted in HPI and below Constitutional: Constitutional: Reports no additional constitutional complaints Cardiovascular: Cardiovascular: Reports no additional cardiovascular complaints Respiratory: Respiratory: Reports no additional respiratory complaints Gastrointestinal: Gastrointestinal: Reports no additional gastrointestinal complaints Musculoskeletal: Musculoskeletal: Reports no additional musculoskeletal complaints [facility] Past Medical History Medical History Osteoporosis Coronary artery disease History of blood clots Anemia History of femur fracture (~1997) Generalized pruritus of unknown etiology HLD (hyperlipidemia) Depression Anxiety GERD (gastroesophageal reflux disease) Surgical History Surgical History History of shoulder surgery History of hand surgery History of back surgery (~1977) History of thumb surgery Family History Family History Mother Heart disease Depression Anxiety Hypertension Father Heart disease Depression Anxiety Hypertension Asthma Social History Social History (Updated 02/18/25 @ 12:52 by Farzaneh Noel) Smoking status: Never smoker Second hand tobacco smoke exposure: No Alcohol intake: never Substance use: never Substance use type: does not use Do You Feel Safe in your Home?: Yes Lack of Transportation: YES Lack of Food: Never True Current Housing: I Have Housing Concerned About Future Housing: No Difficulty Paying Gas/Electric Bills: No Difficulty Paying for Meds: No Currently Unemployed: No Education: Associate Degree Difficulty w/ Childcare or Family Care: No Living arrangements: alone Occupation/Education: retired Gender identity (if verbalized by the patient): Female Exam 2 Narrative: GENERAL: Well-appearing, well-nourished, and in no acute distress. HEAD: Normocephalic, atraumatic. ENT: Mucous membranes moist. CHEST: Clear to auscultation. No respiratory distress. HEART: Irregular irregular rate and rhythm that is tachycardic. Normal peripheral pulses. ABDOMEN: Soft, nontender, nondistended. EXTREMITIES: Normal range of motion. No edema. SKIN: Warm, dry, no rash. NEURO: Alert and oriented x3. PSYCH: Normal mood and affect. Course Course Emergency Course: Patient received IV Lopressor and heart rate went from afib rvr in the 140s to a sinus rhythm in the 70s. She is normotensive. Discussed with cardiology Dr. Ferreira. Recommends starting patient on metoprolol succinate 25 mg and also Eliquis 5 mg. Vital Signs Vital signs: Vital Signs Temperature 97.8 F 02/18/25 14:36 Pulse Rate 144 H 02/18/25 14:36 Respiratory Rate 16 02/18/25 14:36 Blood Pressure 144/82 H 02/18/25 14:36 Pulse Oximetry 96 02/18/25 14:36 Oxygen Delivery Room Air 02/18/25 14:36 Temperature 97.8 F 02/18/25 14:36 Pulse Rate 71 02/18/25 15:29 Respiratory Rate 18 02/18/25 15:29 Blood Pressure 106/73 02/18/25 15:29 Pulse Oximetry 97 02/18/25 15:15 Oxygen Delivery Room Air 02/18/25 14:36 Medical Decision Making Vital Signs Vital Signs: Vital Signs Temperature 97.8 F 02/18/25 14:36 Pulse Rate 144 H 02/18/25 14:36 Respiratory Rate 16 02/18/25 14:36 Blood Pressure 144/82 H 02/18/25 14:36 Pulse Oximetry 96 02/18/25 14:36 Oxygen Delivery Room Air 02/18/25 14:36 Temperature 97.8 F 02/18/25 14:36 Pulse Rate 71 02/18/25 15:29 Respiratory Rate 18 02/18/25 15:29 Blood Pressure 106/73 02/18/25 15:29 Pulse Oximetry 97 02/18/25 15:15 Oxygen Delivery Room Air 02/18/25 14:36 Lab Data 02/18/25 15:09 02/18/25 15:09 Labs: Lab Results 02/18/25 02/18/25 Range/Units 15:09 15:09 WBC 9.0 (4.5-10.0) K/mm3 RBC 4.67 (4.2-5.4) M/mm3 Hgb 14.7 (12.0-15.0) g/dL Hct 43.0 (37.0-47.0) % MCV 92.1 (80-100) fl MCH 31.5 (26-34) pg MCHC 34.2 (32-36) g/dl RDW 13.2 (11.5-14.5) % Plt Count 296 (150-375) k/mm3 MPV 9.0 (7.4-10.4) fl Immature Gran % (Auto) 0.3 (0-0.5) % Neut % (Auto) 70.7 (45.5-73.1) % Lymph % (Auto) 16.2 L (18.3-44.2) % Humphreys % (Auto) 8.4 (2.6-8.5) % Eos % (Auto) 3.8 (0-4.4) % Baso % (Auto) 0.6 (0.2-1.2) % Lymph # (Auto) 1.46 (0.9-3.2) K/mm3 Humphreys # (Auto) 0.8 H (0.1-0.6) K/mm3 Eos # (Auto) 0.3 (0-0.3) K/mm3 Baso # (Auto) 0.1 (0.0-0.1) K/mm3 Abs Immat Gran (auto) 0.03 (0.00-0.031) K/mm3 Absolute Neuts (auto) 6.4 (1.3-6.7) K/mm3 Absolute Nucleated RBC 0.000 (0.0-0.012) K/mm3 Nucleated RBC % 0.0 (0.0-0.2) % PT 12.5 (11.1-14.7) Seconds INR 0.9 APTT 26.1 (22.3-36.8) Seconds D-Dimer 0.62 H Cancelled (<0.48) ug/mL Sodium 138 (137-145) mmol/L Potassium 4.1 (3.4-5.0) mmol/L Chloride 101 (98-107) mmol/L Carbon Dioxide 29 (22-30) mmol/L Anion Gap 8 (4-12) mmol/L BUN 23 H (7-17) mg/dL Creatinine 1.13 H (0.7-1.0) mg/dL Estim Creat Clear Calc 34 ml/min Estimated GFR 46 L (59 - ) Glucose 95 (65-110) mg/dL Calcium 9.4 (8.4-10.2) mg/dL Total Bilirubin 0.3 (0.2-1.3) mg/dL AST 32 (14-36) U/L ALT 22 (6-35) U/L Alkaline Phosphatase 155 H (38-126) U/L Troponin I < 0.012 (0.000-0.034) ng/mL NT-Pro-B Natriuret Pep 558 H (19.9-100) pg/mL Total Protein 7.7 (6.3-8.2) g/dL Albumin 4.4 (3.5-5.1) g/dL ECG Data EKG #1: ECG completion date: 02/18/25 ECG completion time: 14:39 EKG Interpretation: tachycardia (142), non-specific ST changes and normal QRS EKG #2: ECG completion date: 02/18/25 ECG completion time: 15:46 EKG Interpretation: normal rate (74), sinus rhythm, non-specific ST changes, normal QRS, normal QT and other (baseline wander) Critical Care Time Critical Care Time Critical Care Time: Yes Total Critical Care Time: 35 Discharge Plan Discharge Clinical Impression: A-fib Patient Disposition: Home Condition: Stable Instructions: A-fib (Atrial Fibrillation) (ED) Additional Instructions: Please return to the emergency department if you develop severe and persistent chest pain, difficulty breathing, dizziness, leg swelling or if you are coughing up blood as these can be signs of a medical emergency. Please call your doctor for a follow up appointment to determine the need for further testing. Return the ER if you have dark black stools or you fall and strike your head. Patient Language: Honduran Prescriptions: New Eliquis 5 mg tablet 5 mg PO BID Qty: 60 0RF metoprolol succinate 25 mg tablet extended release 24 hr 25 mg PO DAILY Qty: 30 0RF No Action valacyclovir 1 gram tablet 1,000 mg PO DAILY PRN simvastatin 40 mg tablet 40 mg PO DAILY Qty: 90 2RF aspirin 81 mg tablet 81 mg PO DAILY venlafaxine 225 mg tablet extended release 24hr 225 mg PO DAILY Qty: 90 0RF furosemide 20 mg tablet 20 mg PO QAM Qty: 30 5RF omeprazole 20 mg capsule,delayed release(DR/EC) See Rx Instructions .ROUTE .COMPLEX Qty: 90 0RF Dose Instruction: TAKE 1 CAPSULE BY MOUTH DAILY Rx Instructions: TAKE 1 CAPSULE BY MOUTH DAILY Follow-up/Referrals: Ronak Ferreira DO [Physician, Cardiology] - 1 Week Ladonna Quarles DO [Primary Care Provider, Family Practice] - 1 Week
[2025-02-18] MEDS: APIXABAN 5 MG TABLET PO (16:59)
== END 2025-02-18 17:10 | disposition home or self-care (01) ==
PROVIDERS: Emergency Medicine; Emergency Provider Emergency Medicine; PCP Family Medicine
DX: I48.91 Unspecified atrial fibrillation (principal); I25.10 Atherosclerotic heart disease of native coronary artery without angina pectoris; E78.5 Hyperlipidemia, unspecified; K21.9 Gastro-esophageal reflux disease without esophagitis; M81.0 Age-related osteoporosis without current pathological fracture; F41.9 Anxiety disorder, unspecified; F32.A Depression, unspecified; Z86.2 Personal history of diseases of the blood and blood-forming organs and certain disorders involving the immune mechanism; Z79.82 Long term (current) use of aspirin; Z79.899 Other long term (current) drug therapy
CPT/HCPCS: 36415; 80053; 83880; 84484; 85025; 85380; 85610; 85730; 93005; 96374; 99284; A9270; J0616